=== PATIENT | female | born 1930 | race Caucasian/White ===

== ENCOUNTER 2020-04-17 11:30 | Emergency (ER) | payer MEDICARE, OTHER ==
[~2020-04-17] VITALS: Ht 152.4 cm; Wt 54.4 kg
[~2020-04-17 11:30] MED LIST: DOXY100T PO; Metoprolol Succinate PO; PANT40TA3 PO; PRED10TA PO; VERA100C5 PO; VORT5TAB PO; ZOLP5TAB PO
--- NOTE | 2020-04-17 11:32 | NUR ---
ARRIVAL PT ARRIVED TO ED WITH C/O DIFFICULTY BREATHING. PT HAS O2 ATTACHED UPON ARRIVAL. PT STATES SHE DOES NOT KNOW HOW MUCH OXYGEN SHE IS SUPPOSED TO BE ON. PTS GRANDSON STATES SHE HAS BEEN CONFUSED, HAVING MOOD HIGH AND LOWS FOR THE PAST FEW DAYS. BEDSIDE MONITORS APPLIED. BEDSIDE MONITORS APPLIED. VITAL SIGNS STABLE. BED IN LOW LOCKED POSITION WITH CALL LIGHT WITHIN REACH. GRANDSON AT BEDSIDE.
[2020-04-17 11:41] VITALS: BP 156/67
--- NOTE | 2020-04-17 11:48 | ER.PDOC ---
General Chief Complaint: General Complaint Stated Complaint: CONFUSION Time seen by MD: 11:46 Source: patient Exam Limitations: no limitations History of Present Illness Initial Comments Confusion for past few days. Character of AMS: confused Usually: orientedx3 Allergies: Coded Allergies: meperidine (Verified Allergy, Intermediate, 08/10/15) Home Meds Active Scripts Prednisone (PREDNISONE) 10 Mg Tablet, 10 MG PO DAILY24, #1 0 Refills Prov:ARTHUR,AMIR DO 11/17/19 Verapamil Hcl (VERELAN PM) 100 Mg Cap24h.pct, 200 MG PO DAILY, #30 CAPSULE Prov:ARTHUR,AMIR DO 11/17/19 Pantoprazole Sodium (PROTONIX) 40 Mg Tablet.dr, 40 MG PO DAILY, #15 TAB Prov:ARTHUR,AMIR DO 11/17/19 Zolpidem Tartrate (AMBIEN) 5 Mg Tablet, 10 MG PO HS, #30 TAB Prov:ARTHUR,AMIR DO 11/17/19 Vortioxetine Hydrobromide (Trintellix) 5 Mg Tablet, 20 MG PO DAILY24, #30 TAB Prov:ARTHUR,AMIR DO 11/17/19 [Metoprolol Succinate] 25 MG TAB.ER.24H No Conflict Check, 100 MG PO DAILY, #30 TAB Prov:ARTHUR,AMIR DO 11/17/19 Doxycycline Hyclate (DOXYCYCLINE HYCLATE) 100 Mg Tablet, 100 MG PO BID, #10 TAB Prov:ARTHUR,AMIR DO 11/17/19 Past Medical History Medical History: congestive heart failure, COPD, hypertension Surgical History: appendectomy, cholecystectomy, hysterectomy, knee Social History Drug Use: none Review of Systems Constitutional: no symptoms reported Respiratory: no symptoms reported Cardiovascular: no symptoms reported Gastrointestinal: no symptoms reported Musculoskeletal: no symptoms reported Psychiatric/Neurological: see HPI, anxiety All Other Systems: Reviewed and Negative Physical Exam General Appearance: alert, no distress HEENT: no apparent trauma Neuro/Psych: nml speech/cognition, nml mood/affect, disoriented to time Cranial Nerves: nml as tested Peripheral Exam: motor nml, sensation nml, reflexes nml Neck: supple, non-tender, no carotid bruit Respiratory: no resp distress, breath sounds nml CVS: reg rate & rhythm, heart sounds nml Abdomen: non-tender, no organomegaly, no distention Skin: color nml, no rash, warm/dry Extremities: non-tender, nml ROM, no pedal edema Results/Orders Results/Orders Orders - DREW CASTRO MD Cbc With Auto Diff (04/17/20 11:45) Comprehensive Metabolic Panel (04/17/20 11:45) Creatine Kinase (04/17/20 11:45) Creatine Kinase Mb (04/17/20 11:45) PT (04/17/20 11:45) Partial Thromboplastin Time. (04/17/20 11:45) Xr Chest 1v (04/17/20 11:45) Ct Head Wo Contrast (04/17/20 11:45) Urinalysis (04/17/20 11:45) Ekg-Routine (04/17/20 11:45) Troponin I (04/17/20 11:45) Arterial Blood Gas (04/17/20 11:45) Ct Chest W Iv Contrast (04/17/20 12:25) Ct Abd/Pel With Iv Contrast (04/17/20 13:24) Vital Signs Date Time Temp Pulse Resp B/P (MAP) Pulse Ox O2 Delivery O2 Flow Rate FiO2 04/17/20 14:18 98.8 104 18 165/97 (119) 95 Nasal [place] 1.00 04/17/20 12:34 98.8 82 18 168/79 (108) 94 Nasal Canula 1.00 04/17/20 11:41 98.8 104 22 04/17/20 11:41 98.8 104 22 156/67 (96) 94 Room Air 04/17/20 11:41 98.8 104 22 94 Laboratory Tests Test 04/17/20 11:52 04/17/20 12:07 04/17/20 12:42 Blood Gas Sample Site RT BRACIAL ARTERY Blood pH 7.483 (7.350-7.450) Blood Gas PCO2 34.4 mmHg (35.0-45.0) L Blood Gas PO2 59.3 mmHg (80.0-100.0) L Blood Gas HCO3 25.2 mmol/L (22.0-26.0) Blood Gas Base Excess 2.3 mmol/L (-2.0-2.0) H Dioni Test N/A Arterial Blood Oxygen Saturation 91.6 % (94.0-97.00) L Deoxyhemoglobin 8.3 % (0.0-5.0) H Carboxyhemoglobin 0.8 % (0.0-3.9) Methemoglobin 0.0 % (0.00-5.0) Total Hemoglobin 15.3 % (12.0-17.8) Total Oxygen Concentration 19.5 % (13.5-17.5) H Blood Gas Temperature 37 Oxygen Delivery Method ROOM AIR FiO2 21 % (20-101) Total Carbon Dioxide 26.3 mmol/L (23-27) White Blood Count 5.3 10^3/uL (4.5-11.0) Red Blood Count 5.04 10^6/uL (4.00-5.20) Hemoglobin 14.2 g/dL (12.0-15.0) Hematocrit 43.2 % (36.0-46.0) Mean Corpuscular Volume 85.7 fL (78-100) Mean Corpuscular Hemoglobin 28.2 pg (26-34) Mean Corpuscular Hemoglobin Concent 32.9 g/dL (33-36.5) L Red Cell Distribution Width 14.4 % (11.5-14.5) Platelet Count 191 10^3/uL (150-400) Mean Platelet Volume 10.7 fL (7.8-11.0) Neutrophils (%) (Auto) 81.3 % (41.0-85.0) Lymphocytes (%) (Auto) 11.9 % (24.0-44.0) L Monocytes (%) (Auto) 6.4 % (5.0-12.0) Neutrophils # (Auto) 4.3 10^3/uL (1.8-7.7) Lymphocytes # (Auto) 0.63 10^3/uL1 (1.0-4.8) L Monocytes # (Auto) 0.3 10^3/uL (0.3-0.8) Absolute Immature Granulocyte (auto 0.01 10^3 u/L (0-2) Absolute Eosinophils (auto) 0.0 10^3/uL (0.0-0.2) Immature Granulocytes % 0.20 % (0.00-0.50) Eosinophils % 0.0 % (0.0-5.0) Basophils % 0.2 % (0.0-0.2) Basophils # 0.0 10^3/uL (0.0-0.1) Prothrombin Time 11.0 SEC (9.3-11.3) Prothrombin Time INR (Non-Therap) 1.1 Activated Partial Thromboplast Time 26.4 SEC (24.67-30.72) Sodium Level 141 mmol/L (132-145) Potassium Level 3.8 mmol/L (3.6-5.2) Chloride Level 105.0 mmol/L (96-109) Carbon Dioxide Level 27.5 mmol/L (20.0-32) Anion Gap 12.3 Blood Urea Nitrogen 16 mg/dL (7-18) Creatinine 0.71 mg/dL (0.59-1.40) Estimated GFR () 94.2 (>/=60) Est GFR (CKD-EPI)(Non-Afr [place]) 77.9 (>/=60) BUN/Creatinine Ratio 22.0 Glucose Level 122 mg/dL (70-110) H Calcium Level 8.8 mg/dL (8.4-10.5) Total Bilirubin 1.2 mg/dL (0.2-1.0) H Aspartate Amino Transferase (AST) 21 U/L (0-35) Alanine Aminotransferase (ALT) 25 U/L (12-78) Alkaline Phosphatase 102 U/L (50-136) Total Creatine Kinase 48 U/L (26-192) Creatine Kinase MB 2.3 ng/mL (0.5-3.6) Troponin I < 0.02 ng/mL (0.00-0.05) Total Protein 6.2 g/dL (6.4-8.2) L Albumin 3.4 g/dL (3.4-5.0) Globulin 2.8 Urine Collection Type VOID Urine Color YELLOW (YELLOW) Urine Appearance CLEAR (CLEAR) Urine Bilirubin NEGATIVE MG/DL (NEGATIVE) Urine Ketones 15 mg/dL (NEGATIVE) H Urine Specific [place] 1.020 (1.005-1.035) Urine pH 7.5 (5.0-6.0) Urine Protein NEGATIVE (NEGATIVE) Urine Urobilinogen NORMAL (NEGATIVE) Urine Nitrate NEGATIVE (NEGATIVE) Urine Leukocyte Esterase 25 /uL TRACE (NEGATIVE) Urine Blood 10 TR (NEGATIVE) H Urine RBC 2-5 RBC/HPF (NONE SEEN) Urine WBC 0-2 WBC/HPF (0-2) Urine Squamous Epithelial Cells RARE #/HPF (FEW) Urine Bacteria NONE SEEN (NONE SEEN) Urine Glucose NORMAL (NEGATIVE) Progress Progress CT chest: Emphysema with chronic elevation of the right hemidiaphragm. No active cardiopulmonary disease process. The radiographic finding of concern likely represents a summation artifact CT abdomen/pelvis: Prior cholecystectomy and hysterectomy. Large cysts identified in each kidney. 2. Colonic diverticulosis without diverticulitis. 3. Increased amounts of fecal material in the colon suggestive of moderate constipation. Recommend clinical correlation. EKG/XRAY/CT/US EKG: NSR CT Comments: No acute intracranial abnormality Departure Time of Disposition: 14:27 Disposition: 01 HOME, SELF-CARE Impression: Primary Impression: Dementia Additional Impressions: COPD (chronic obstructive pulmonary disease) Constipation Condition: Stable Referrals: CARLOS RODRÍGUEZ MD (PCP) PRIMARY CARE PROVIDER Additional Instructions: Magnesium Citrate Continue home medications F/U with your PCP in 2-3 days Return to ED if worsening symptoms or concerns Duration or Time Spent with Pa: 60 min Problem Qualifiers Primary Impression: Dementia Dementia type: Alzheimer's disease Alzheimer's disease onset: unspecified onset Dementia behavioral disturbance: without behavioral disturbance Qualified Codes: G30.9 - Alzheimer's disease, unspecified; F02.80 - Dementia in other diseases classified elsewhere without behavioral disturbance Additional Impressions: COPD (chronic obstructive pulmonary disease) COPD type: unspecified COPD Qualified Codes: J44.9 - Chronic obstructive pulmonary disease, unspecified Constipation Constipation type: unspecified constipation type Qualified Codes: K59.00 - Constipation, unspecified DREW CASTRO MD Apr 17, 2020 11:48
--- NOTE | 2020-04-17 11:50 | PCM.EKG ---
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
[2020-04-17 11:57] LABS: ABG PCO2 34.4 mmHg (35.0-45.0); ABG PH 7.483 (7.350-7.450); BE(B) 2.3 mmol/L (-2.0-2.0); HCO3act 25.2 mmol/L (22.0-26.0); pO2 59.3 mmHg (80.0-100.0)
--- NOTE | 2020-04-17 12:13 | DIREP ---
PROCEDURE:CHEST 1 VIEW COMPARISON:[facility], CR, XRAY CHEST SINGLE VW, 02/24/2020, 07:27 AM. INDICATIONS:Shortness of breath FINDINGS: LUNGS/PLEURA:Chronic elevation of the right hemidiaphragm. Interval resolution of atelectasis previously seen in the right lung base. Emphysema. Focal rounded ground-glass opacity in the left hilum measuring 6 cm. No effusions. No pneumothorax. VASCULATURE:Unremarkable pulmonary vasculature. CARDIAC:No cardiac silhouette abnormality or cardiomegaly. MEDIASTINUM:No visible mass or adenopathy. BONES:Degenerative changes of the shoulders with loose body noted on the right. OTHER:Negative. CONCLUSION: 1. Focal rounded ground-glass opacity in the left hilum. Recommend CT chest. 2. Suspect underlying emphysema. Dictated by: Tere Ochoa MD on 04/17/2020 at 12:10 PM
--- NOTE | 2020-04-17 12:19 | DIREP ---
PROCEDURE:CT HEAD OR BRAIN W/O CONTRAST COMPARISON:[facility], CT, CT HEAD BRAIN W/O CONTRAST, 02/24/2020, 07:11 AM. INDICATIONS:Confusion TECHNIQUE:CT images were created without intravenous contrast. FINDINGS: VENTRICLES:No hydrocephalus or midline shift. CEREBRUM:Mild enlargement of the cerebral sulci and fissures. Multiple areas of decreased density in the deep white matter of each hemisphere. 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 CEREBELLUM:Negative. BRAINSTEM:Negative. BASAL CISTERNS:Negative. SKULL:Normal. No fractures. SINUSES:Normal. OTHER:No acute intracranial hemorrhage. There is calcification of the intracranial portions of both internal carotid and both vertebral arteries. CONCLUSION: 1. 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 Mild age-related cerebral volume loss, intracranial arterial calcification, and extensive leukoariosis. 2. No acute pathology on noncontrast CT of the head. No significant change from the prior exam. Dictated by: Shane Ovalle M.D. on 04/17/2020 at 12:15 PM
[2020-04-17 12:27] LABS: BASOPHIL % 0.2 % (0.0-0.2); LYMPHOCYTES # 0.63 10^3/uL1 (1.0-4.8); LYMPHOCYTES % 11.9 % (24.0-44.0); MEAN CORP HGB 28.2 pg (26-34); MONOCYTES # 0.3 10^3/uL (0.3-0.8); MONOCYTES % 6.4 % (5.0-12.0); NEUTROPHIL # 4.3 10^3/uL (1.8-7.7); NEUTROPHILS % 81.3 % (41.0-85.0); PLATELET COUNT 191 10^3/uL (150-400); RED CELL DISTRIBUTION WIDTH 14.4 % (11.5-14.5)
--- NOTE | 2020-04-17 12:28 | NUR ---
PT STATUS PT SLEEPING, WHILE SLEEPING PTS O2 SATURATION AT 89% ON ROOM AIR. PT PLACED ON 1LITER VIA N/C AND NOW O2 SATURATION AT 94%. PT RESTING PEACFULLY, DENIES ANY NEEDS OR WANTS.
[2020-04-17 12:34] VITALS: BP 168/79
[2020-04-17 12:57] LABS: ALANINE AMINOTRANSFERASE(ML) 25 U/L (12-78); ALKALINE PHOSPHATASE 102 U/L (50-136); ASPARTATE AMINO TRANSFERASE 21 U/L (0-35); CALCIUM 8.8 mg/dL (8.4-10.5); CARBON DIOXIDE 27.5 mmol/L (20.0-32); GLUCOSE 122 mg/dL (70-110)
--- NOTE | 2020-04-17 13:11 | NUR ---
CT PT TAKEN TO CT.
[2020-04-17 13:14] LABS: APPEARANCE,URINE CLEAR (CLEAR); BILIRUBIN,URINE NEGATIVE (NEGATIVE); UA COLOR YELLOW (YELLOW)
[2020-04-17 13:15] LABS: UROBILINOGEN,URINE NORMAL (NEGATIVE)
--- NOTE | 2020-04-17 13:52 | DIREP ---
PROCEDURE:CT CHEST WITH CONTRAST COMPARISON:[facility], CT, CT ABD/PELVIS W/ CONTRAST, 04/17/2020, 01:30 PM. [facility], CR, XRAY CHEST SINGLE VW, 04/17/2020, 11:58 AM. INDICATIONS:shortness of breath and 6cm opacity left hilium TECHNIQUE:Helical sections through the chest were performed from the lung apices through the diaphragms with IV contrast. Sagittal and coronal reconstructions are obtained from source images. FINDINGS: LUNGS:Centrilobular emphysema. No visible pulmonary disease. Elevation of the right hemidiaphragm PLEURA:Normal. No mass or effusion. CARDIAC:Normal. No enlargement, pericardial thickening, or significant calcification. MEDIASTINUM:Normal. No mass or adenopathy. ZANE:Normal. No mass or adenopathy. AORTA:Atheromatous calcifications. CHEST WALL:Normal. No mass or axillary adenopathy. LIMITED ABDOMEN:Cholecystectomy. Bilateral renal cysts. BONES:Normal. No bony lesion or fracture. OTHER:Negative. CONCLUSION: Emphysema with chronic elevation of the right hemidiaphragm. No active cardiopulmonary disease process. The radiographic finding of concern likely represents a summation artifact Dictated by: Meliton Panchal M.D. on 04/17/2020 at 01:45 PM
[2020-04-17 14:18] VITALS: BP 165/97
--- NOTE | 2020-04-17 14:20 | DIREP ---
PROCEDURE:CT ABDOMEN/PELVIS W/ CONTRAST COMPARISON:[facility], CR, XRAY CHEST SINGLE VW, 11/15/2019, 11:19 AM. [facility], CR, XRAY CHEST 2 VWS, 10/11/2016, 10:37 AM. [facility], CR, XRAY CHEST SINGLE VW, 04/17/2020, 11:58 AM. INDICATIONS:RECOMMENDED BY RAD TECHNIQUE:Axial images were created through the abdomen and pelvis with non-ionic intravenous contrast material. No oral contrast was administered. Sagittal and coronal reconstructions were performed from source images. FINDINGS: LUNG BASES:Chronically elevated right hemidiaphragm. Normal heart size. Calcification of the mitral valve annulus. LIVER:Normal. No significant liver lesions are identified. BILIARY:Cholecystectomy clips. PANCREAS:Normal. No lesion, fluid collection, ductal dilatation, or atrophy. SPLEEN:Normal. No enlargement or focal lesion. ADRENALS:Normal. No mass or enlargement. URINARY TRACT:No hydronephrosis. Multiple large cysts identified in each kidney. Largest cyst is in the lower portion of the left kidney, and measures 5.8 x 8 x 7.4 cm. AORTA/VASCULAR:Scattered arterial calcifications. No aneurysm. RETROPERITONEUM:Normal. No mass or adenopathy. BOWEL/MESENTERY:Evaluation due to lack of oral contrast administration. 6 cm hiatal hernia. Somewhat increased amounts of gas and fluid identified in small large bowel loops. No evidence of high-grade intestinal obstruction, free air, or free fluid. Multiple colonic diverticula without diverticulitis. Large amount of fecal material throughout the colon. ABDOMINAL WALL:Normal. No mass or hernia. PELVIC ORGANS:Hysterectomy. BONES:No acute pathology. OTHER:Negative. CONCLUSION: 1. Prior cholecystectomy and hysterectomy. Large cysts identified in each kidney. 2. Colonic diverticulosis without diverticulitis. 3. Increased amounts of fecal material in the colon suggestive of moderate constipation. Recommend clinical correlation. Dictated by: Shane Ovalle M.D. on 04/17/2020 at 02:12 PM
[2020-05-26] MEDS ORDERED: METO-237 PO (06:50)
[2020-05-26] MEDS ORDERED: ASPI-667 PO (06:50)
[2020-05-26] MEDS ORDERED: FURO20TA3 PO (06:50)
[2020-05-26] MEDS ORDERED: LORA-448 PO (06:50)
[2020-05-26] MEDS ORDERED: POTA15TA9 PO (06:50)
[2020-05-26] MEDS ORDERED: FLUT1BLS3 IH (06:50)
[2020-05-26] MEDS ORDERED: LORA-447 PO (06:50)
[2020-05-26] MEDS ORDERED: ALBU0.63 NEB (06:50)
[2020-05-26] MEDS ORDERED: TRAZ-163 PO (06:50)
== END 2020-04-17 14:40 | disposition home or self-care (01) ==
LOC: ER 11:30
DX: J44.9 Chronic obstructive pulmonary disease, unspecified (principal); K59.00 Constipation, unspecified; F03.90 Unspecified dementia, unspecified severity, without behavioral disturbance, psychotic disturbance, mood disturbance, and anxiety; I11.0 Hypertensive heart disease with heart failure; I50.9 Heart failure, unspecified; Z79.899 Other long term (current) drug therapy; Z88.5 Allergy status to narcotic agent; Z90.49 Acquired absence of other specified parts of digestive tract; Z90.710 Acquired absence of both cervix and uterus
CPT/HCPCS: 36415; 70450; 71045; 71260; 74177; 80053; 81000; 82550; 82553; 82803; 84484; 85025; 85610; 85730; 93005; 99285; Q9965

== ENCOUNTER 2020-07-14 13:13 | Inpatient (IN) | payer MEDICARE, OTHER ==
[2020-07-14] VITALS (7 sets, daily range): BP systolic 113–138; BP diastolic 53–86
[~2020-07-14] VITALS: Ht 162.6 cm; Wt 79.4 kg
[~2020-07-14 13:13] MED LIST changes: +ALBU0.63 NEB; +ASPI-667 PO; +FLUT1BLS3 IH; +FURO20TA3 PO; +LORA-447 PO; +LORA-448 PO; +METO-237 PO; +POTA15TA9 PO; +TRAZ-163 PO
[2020-07-14] MEDS ORDERED: NEXTERONE ONE (14:01)
[2020-07-14] MEDS ORDERED: NEXTERONE 360 MG/200 ML BAG 200 ML IV ONE ×2 (14:01→21:44)
--- NOTE | 2020-07-14 14:21 | PCM.EKG ---
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1930 Requested By: DANETTE GANNON Order Number: [id number] Reading MD: Measurements Intervals [place] Rate: 137 P: [place]: QRS: 60 QRSD: 104 T: 76 QT: 345 QTc: 521 Interpretive Statements Atrial fibrillation Low voltage, extremity leads Probable left ventricular hypertrophy Anterior Q waves, possibly due to LVH Nonspecific T abnormalities, lateral leads Prolonged QT interval Compared to ECG 05/29/2020 17:25:39 Low QRS voltage now present Left ventricular hypertrophy now present Q waves now present T-wave abnormality now present Prolonged QT interval now present Sinus rhythm no longer present Atrial premature complex(es) no longer present Myocardial infarct finding no longer present Please click the below link to view image of tracing.
--- NOTE | 2020-07-14 14:34 | ER.PDOC ---
General Chief Complaint: Dyspnea/Respdistress Stated Complaint: DYSPNEA Time seen by MD: 14:33 Source: patient Exam Limitations: no limitations History of Present Illness Timing/Duration: 24 hours Severity: moderate Activities at Onset: activity/exertion, rest Prior Episodes/Possible Cause: chronic episodes Modifying Factors: improves with activity, improves with albuterol inhaler Associated Symptoms: edema, weakness Allergies: Coded Allergies: meperidine (Verified Allergy, Intermediate, 08/10/15) Home Meds Active Scripts Verapamil Hcl (VERELAN PM) 100 Mg Cap24h.pct, 200 MG PO DAILY, #30 CAPSULE Prov:ARTHUR,AMIR DO 11/17/19 Vortioxetine Hydrobromide (Trintellix) 5 Mg Tablet, 20 MG PO DAILY24, #30 TAB Prov:ARTHUR,AMIR DO 11/17/19 Reported Medications Lorazepam (ATIVAN) 0.5 Mg Tablet, 0.5 MG PO AT NOON PRN, TAB 05/26/20 Albuterol Sulfate (ALBUTEROL SULFATE) 0.63 Mg/3 Ml Vial.neb, 1 VIAL NEB BID, #225 MILLILITER 05/26/20 Fluticasone/Umeclidin/Vilanter (Trelegy Ellipta 100-62.5-25) 100-62.5 Blst.w.dev, 1 PUFF IH AM 05/26/20 Trazodone Hcl (TRAZODONE HCL) 50 Mg Tablet, 50 MG PO HS, TAB 05/26/20 Potassium Citrate (Potassium Citrate ER) 15 Meq Tablet.er, 20 MEQ PO BID 05/26/20 Metoprolol Succinate (METOPROLOL SUCCINATE) 50 Mg Tab.er.24h, 50 MG PO DAILY24, TABLET 05/26/20 Lorazepam (ATIVAN) 1 Mg Tablet, 1 MG PO BID, TAB 05/26/20 Furosemide (FUROSEMIDE) 20 Mg Tablet, 20 MG PO EVERY OTHER DAY, TAB 05/26/20 Aspirin (ASPIRIN) 81 Mg Tab.chew, 2 TAB PO DAILY, #90 TAB 3 Refills 05/26/20 Past Medical History Medical History: arrhythmia, cardiac problems, congestive heart failure, COPD, hypertension, other Surgical History: appendectomy, cholecystectomy, hysterectomy, tonsillectomy Social History Alcohol Use: none Drug Use: none Reviewed Nursing Reviewed: Vital Signs, Abn. Noted Review of Systems Constitutional: weakness EENTM: no symptoms reported Respiratory: see HPI Gastrointestinal: no symptoms reported All Other Systems: Reviewed and Negative Physical Exam General Appearance: Mild Distress HEENT: PERRL/EOMI, Normal ENT Inspection, TMs Normal, Pharynx Normal Neck: Non-Tender, Full Range of Motion, Supple, Normal Inspection Respiratory: chest non-tender, lungs clear, normal breath sounds, no respiratory distress, no accessory muscle use Cardiovascular: Tachycardia Gastrointestinal: Normal Bowel Sounds, No Organomegaly, No Pulsatile Mass, Non Tender, Soft Extremities: Swelling Neurologic/Psychiatric: 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 NML as Tested, No Motor/Sensory Deficits, Alert, Normal Mood/Affect, Oriented x 3 Skin: Normal Color, Warm/Dry Lymphatic: No Adenopathy Results/Orders Results/Orders Orders - DANETTE GANNON MD Amiodarone Hcl (Nexterone) (07/14/20 14:01) Amiodarone In Dextrose,Iso-Osm (Nexteron (07/14/20 14:01) Cbc With Auto Diff (07/14/20 14:19) Comprehensive Metabolic Panel (07/14/20 14:19) Creatine Kinase (07/14/20 14:19) Creatine Kinase Mb (07/14/20 14:19) Probnp B-Type Cardroom Drawing Runner (07/14/20 14:19) Troponin I (07/14/20 14:19) D-Dimer (07/14/20 14:19) Xr Chest 1v (07/14/20 14:19) PT (07/14/20 14:19) Partial Thromboplastin Time. (07/14/20 14:19) Ekg-Routine (07/14/20 14:19) Iv Amiodarone Protocol (07/14/20 14:20) Amiodarone Hcl (Nexterone) (07/14/20 15:53) Amiodarone In Dextrose,Iso-Osm (Nexteron (07/14/20 15:53) Covid19 Antigen Neli Elvira (07/14/20 15:55) Lorazepam (Ativan) (07/14/20 16:00) Lorazepam (Ativan) (07/14/20 16:07) Vital Signs Date Time Temp Pulse Resp B/P (MAP) Pulse Ox O2 Delivery O2 Flow Rate FiO2 11/3/20 13:28 95.8 115 26 113/56 (75) 94 Room Air 07/14/20 13:15 95.8 118 26 94 07/14/20 13:15 95.8 115 26 05/26/20 11:09 93 Administered Medications Medications (Trade) Dose Ordered Sig/Jose Route PRN Reason Start Time Stop Time Status Last Admin Dose Admin Amiodarone HCl 150 mg/Dextrose 103 ml @ 600 mls/hr OT STAT IV 07/14/20 15:53 07/14/20 16:03 DC 07/14/20 15:00 600 MLS/HR Amiodarone HCL/ Dextrose 200 ml @ 34 mls/hr OT STAT IV 07/14/20 15:53 07/14/20 21:45 07/14/20 15:15 34 MLS/HR Lorazepam (Ativan) 0.5 mg STAT STAT PO 07/14/20 16:00 07/14/20 16:01 DC 07/14/20 16:12 0.5 MG Laboratory Tests Test 07/14/20 14:45 White Blood Count 5.2 10^3/uL (4.5-11.0) Red Blood Count 4.33 10^6/uL (4.00-5.20) Hemoglobin 12.3 g/dL (12.0-15.0) Hematocrit 41.8 % (36.0-46.0) Mean Corpuscular Volume 96.5 fL (78-100) Mean Corpuscular Hemoglobin 28.4 pg (26-34) Mean Corpuscular Hemoglobin Concent 29.4 g/dL (33-36.5) L Red Cell Distribution Width 17.5 % (11.5-14.5) H Platelet Count 126 10^3/uL (150-400) L Mean Platelet Volume 11.7 fL (7.8-11.0) H Neutrophils (%) (Auto) 77.2 % (41.0-85.0) Lymphocytes (%) (Auto) 14.1 % (24.0-44.0) L Monocytes (%) (Auto) 8.3 % (5.0-12.0) Neutrophils # (Auto) 4.0 10^3/uL (1.8-7.7) Lymphocytes # (Auto) 0.73 10^3/uL1 (1.0-4.8) L Monocytes # (Auto) 0.4 10^3/uL (0.3-0.8) Absolute Immature Granulocyte (auto 0.01 10^3 u/L (0-2) Absolute Eosinophils (auto) 0.0 10^3/uL (0.0-0.2) Immature Granulocytes % 0.20 % (0.00-0.50) Eosinophils % 0.0 % (0.0-5.0) Basophils % 0.2 % (0.0-0.2) Basophils # 0.0 10^3/uL (0.0-0.1) Prothrombin Time 11.3 SEC (9.3-11.3) Prothrombin Time INR (Non-Therap) 1.1 Activated Partial Thromboplast Time 26.3 SEC (24.67-30.72) D-Dimer 0.77 mg/L (0.19-0.49) *H Sodium Level 145 mmol/L (132-145) Potassium Level 4.3 mmol/L (3.6-5.2) Chloride Level 108.0 mmol/L (96-109) Carbon Dioxide Level 35.8 mmol/L (20.0-32) H Anion Gap 5.5 Blood Urea Nitrogen 23 mg/dL (7-18) H Creatinine 0.80 mg/dL (0.59-1.40) Estimated GFR () 82.1 (>/=60) Est GFR (CKD-EPI)(Non-Afr [place]an) 67.8 (>/=60) BUN/Creatinine Ratio 28.0 Glucose Level 132 mg/dL (70-110) H Calcium Level 8.8 mg/dL (8.4-10.5) Total Bilirubin 3.1 mg/dL (0.2-1.0) H Aspartate Amino Transferase (AST) 29 U/L (0-35) Alanine Aminotransferase (ALT) 22 U/L (12-78) Alkaline Phosphatase 99 U/L (50-136) Total Creatine Kinase 42 U/L (26-192) Creatine Kinase MB 3.6 ng/mL (0.5-3.6) Troponin I 0.13 ng/mL (0.00-0.05) H Pro-B-Type Natriuretic Peptide 9501 pg/mL (0-450) H Total Protein 5.6 g/dL (6.4-8.2) L Albumin 3.2 g/dL (3.4-5.0) L Globulin 2.4 Albumin/Globulin Ratio 1.333 EKG/XRAY/CT/US EKG Comments: afib , rvr Consult/PCP Time Consult/PCP Called: 16:00 Consult/PCP: DR MILES ER DEPART Departure Time of Disposition: 15:22 Disposition: 09 ADMITTED INPATIENT Impression: Primary Impression: Atrial fibrillation with RVR Additional Impression: Decompensated heart failure Condition: Improved Referrals: CARLOS RODRÍGUEZ MD (PCP) PRIMARY CARE PROVIDER Duration or Time Spent with Pa: 21M Problem Qualifiers DANETTE GANNON MD Jul 14, 2020 14:34
--- NOTE | 2020-07-14 14:35 | DIREP ---
PROCEDURE:CHEST 1 VIEW COMPARISON:[facility], CR, XRAY CHEST SINGLE VW, 05/29/2020, 05:30 PM. INDICATIONS:SHORTNESS OF BREATH FINDINGS: LUNGS/PLEURA:Elevation of the right hemidiaphragm, with small bilateral pleural effusions. No focal consolidation or pneumothorax noted. VASCULATURE:Normal. Unremarkable pulmonary vasculature. CARDIAC:Normal. No cardiac silhouette abnormality or cardiomegaly. MEDIASTINUM:Calcified aorta. BONES:Degenerative changes. OTHER:Negative. CONCLUSION:Small bilateral pleural effusions. Dictated by: Maya Jean M.D. on 07/14/2020 at 02:33 PM
[2020-07-14 14:56] LABS: BASOPHIL % 0.2 % (0.0-0.2); LYMPHOCYTES # 0.73 10^3/uL1 (1.0-4.8); LYMPHOCYTES % 14.1 % (24.0-44.0); MEAN CORP HGB 28.4 pg (26-34); MONOCYTES # 0.4 10^3/uL (0.3-0.8); MONOCYTES % 8.3 % (5.0-12.0); NEUTROPHILS % 77.2 % (41.0-85.0); PLATELET COUNT 126 10^3/uL (150-400); RED CELL DISTRIBUTION WIDTH 17.5 % (11.5-14.5)
[2020-07-14 15:21] LABS: CALCIUM 8.8 mg/dL (8.4-10.5); CARBON DIOXIDE 35.8 mmol/L (20.0-32)
[2020-07-14] MEDS ORDERED: NEXTERONE IV STA (15:53)
[2020-07-14] MEDS ORDERED: NEXTERONE 360 MG/200 ML BAG 200 ML IV STA (15:53)
[2020-07-14] MEDS ORDERED: D5W IV STA (15:53)
[2020-07-14] MEDS ORDERED: ATIVAN PO STA (16:00)
[2020-07-14] MEDS ORDERED: ATIVAN ONE (16:07)
--- NOTE | 2020-07-14 19:18 | NUR ---
ROSI ARANDA IN ER TO SEE PATIENT
[2020-07-14] MEDS ORDERED: MORPHINE SULFATE IV PRN (20:00)
[2020-07-14] MEDS ORDERED: VENTOLIN IH PRN (20:00)
[2020-07-14] MEDS ORDERED: TYLENOL PO PRN (20:00)
[2020-07-14] MEDS ORDERED: REMDESIVIR (EUA) 200 MG in NS 250ML 250 ML IV SCH (20:00)
[2020-07-14] MEDS ORDERED: ATROVENT IH PRN (20:00)
[2020-07-14] MEDS: LASIX IV SCH (21:00)
[2020-07-14] MEDS ORDERED: LOVENOX SQ SCH (21:00)
--- NOTE | 2020-07-14 21:30 | PCM.HP ---
HISTORY & PHYSICAL HISTORY & PHYSICAL DATE OF ADMISSION: CHIEF COMPLAINT: HISTORY OF PRESENT ILLNESS: ALLERGIES: CURRENT MEDICATIONS: PAST MEDICAL HISTORY: SOCIAL HISTORY: FAMILY HISTORY: REVIEW OF SYSTEMS: PHYSICAL EXAMINATION: GENERAL: VITAL SIGNS: HEENT: NECK: LUNGS: HEART: ABDOMEN: EXTREMITIES: NEUROLOGIC: LABORATORY DATA: IMPRESSION: CARE PLAN: HILDA ARANDA MD Jul 14, 2020 21:30
[2020-07-14] MEDS: COMBIVENT RESPIMAT 20-100 MCG IH PRN (22:10)
[2020-07-14] MEDS ORDERED: LANOLIN HYDROUS TP ONE (22:20)
[2020-07-14 23:13] LABS: ABG PCO2 43.4 mmHg (35.0-45.0); BE(B) 1.9 mmol/L (-2.0-2.0); HCO3act 26.9 mmol/L (22.0-26.0); pO2 90.3 mmHg (80.0-100.0)
--- NOTE | 2020-07-14 23:40 | NUR ---
ROSI/AMIODARONE THIS NURSE PHONED DR. ARANDA AND LEFT A MESSAGE REGARDING AMIODARONE DRIP. WAITING TO HERE BACK FROM DR. ARANDA.
--- NOTE | 2020-07-14 23:55 | NUR ---
CLARIFICATION OF AMIODARONE DR. MILES PHONED DR. ARANDA CONCERNING THE AMIODARONE. DR. MILES REPORTED DR. ARANDA WOULD LIKE AMIODARONE CONTINUED PER PROTOCOL AND ALSO CONTINUE THE GIVE THE METOPROLOL ORDERED.
[2020-07-15] MEDS ORDERED: NEXTERONE 360 MG/200 ML BAG 200 ML IV SCH
[2020-07-15] MEDS: ATIVAN PO SCH ×3 (00:03→21:25)
[2020-07-15] MEDS: PEPCID IV SCH ×3 (00:03→21:25)
[2020-07-15] MEDS: TRINTELLIX PO SCH ×2 (00:04→18:21)
[2020-07-15] MEDS: VITAMIN C PO SCH ×3 (00:04→21:25)
[2020-07-15] MEDS: TOPROL XL PO SCH ×2 (00:05→18:21)
[2020-07-15] MEDS: LOVENOX SQ SCH ×2 (00:07→08:34)
[2020-07-15 00:12] VITALS: BP 122/83
[2020-07-15 02:40] VITALS: BP 122/77
[2020-07-15 05:44] LABS: BASOPHIL % 0.2 % (0.0-0.2); LYMPHOCYTES # 0.86 10^3/uL1 (1.0-4.8); LYMPHOCYTES % 18.6 % (24.0-44.0); MEAN CORP HGB 28.9 pg (26-34); MONOCYTES # 0.5 10^3/uL (0.3-0.8); MONOCYTES % 10.2 % (5.0-12.0); NEUTROPHIL # 3.3 10^3/uL (1.8-7.7); NEUTROPHILS % 70.8 % (41.0-85.0); PLATELET COUNT 125 10^3/uL (150-400); RED CELL DISTRIBUTION WIDTH 17.6 % (11.5-14.5)
[2020-07-15 07:13] LABS: CALCIUM 8.6 mg/dL (8.4-10.5)
[2020-07-15] MEDS ORDERED: PEPCID IV ONE (08:16)
--- NOTE | 2020-07-15 08:25 | DIREP ---
PROCEDURE:US VENOUS IMAGING BILAT COMPARISON:None. INDICATIONS:R/O DVT, Knee Surg over 10 yr, Leg Swelling TECHNIQUE:The lower extremities were evaluated utilizing hamilton scale images with segmental compression, color Doppler, and spectral Doppler with respiratory variation and augmentation. FINDINGS: RIGHT Common femoral vein:Patent Superficial femoral vein:Patent Popliteal vein:Patent Posterior tibial vein:Patent Greater saphenous vein:Patent Waveforms: Within normal limits. LEFT Common femoral vein:Patent Superficial femoral vein:Patent Popliteal vein:Patent Posterior tibial vein:Patent Greater saphenous vein:Patent Waveforms: Within normal limits. CONCLUSION:No evidence of deep venous thrombosis Dictated by: Song Bose DO on 07/15/2020 at 08:21 AM
[2020-07-15] MEDS: ASPIRIN PO SCH (08:34)
[2020-07-15] MEDS: ZINC SULFATE PO SCH (08:34)
[2020-07-15] MEDS: DEXAMETHASONE 10 MG/ML VIAL IV SCH (08:35)
[2020-07-15] MEDS: LASIX IV SCH ×2 (08:35→21:25)
[2020-07-15 08:42] VITALS: BP 139/74
[2020-07-15] MEDS: COMBIVENT RESPIMAT 20-100 MCG IH PRN ×2 (09:00→15:46)
[2020-07-15 09:57] VITALS: BP 139/74
[2020-07-15 14:48] VITALS: BP 143/86
--- NOTE | 2020-07-15 15:00 | NUR ---
Amiodarone Amiodarone drip stop at this time per protocol. Heart rate 70 Sinus Rhythm, patient verbalize that she "feels so much better" no acute s/s of distress noted. Will continue to monitor.
[2020-07-15 20:00] VITALS: BP 147/73
--- NOTE | 2020-07-15 23:59 | PRM.PN ---
PROGRESS NOTE S/O/A/P SUBJECTIVE: This [] years of age patient [] who has presented [ ] OBJECTIVE: [] ASSESSMENT:[] PLAN[] HILDA ARANDA MD Jul 15, 2020 23:59
[2020-07-16] VITALS: BP 167/80
[2020-07-16 04:00] VITALS: BP 138/74
[2020-07-16 07:23] LABS: BASOPHIL % 0.4 % (0.0-0.2); LYMPHOCYTES # 0.64 10^3/uL1 (1.0-4.8); LYMPHOCYTES % 11.7 % (24.0-44.0); MEAN CORP HGB 29.4 pg (26-34); MONOCYTES # 0.5 10^3/uL (0.3-0.8); MONOCYTES % 9.7 % (5.0-12.0); NEUTROPHIL # 4.3 10^3/uL (1.8-7.7); PLATELET COUNT 121 10^3/uL (150-400); RED CELL DISTRIBUTION WIDTH 17.3 % (11.5-14.5)
[2020-07-16 08:07] LABS: CALCIUM 8.3 mg/dL (8.4-10.5); CARBON DIOXIDE 37.9 mmol/L (20.0-32)
[2020-07-16 09:09] VITALS: BP 149/73
[2020-07-16] MEDS: COMBIVENT RESPIMAT 20-100 MCG IH PRN ×2 (09:20→21:15)
[2020-07-16] MEDS: VITAMIN C PO SCH ×2 (10:16→22:33)
[2020-07-16] MEDS: ATIVAN PO SCH ×2 (10:16→22:33)
[2020-07-16] MEDS: ZINC SULFATE PO SCH (10:16)
[2020-07-16] MEDS: ASPIRIN PO SCH (10:16)
[2020-07-16] MEDS: LOVENOX SQ SCH (10:17)
[2020-07-16] MEDS: PEPCID IV SCH ×2 (10:17→22:33)
[2020-07-16] MEDS: LASIX IV SCH ×2 (10:17→22:33)
[2020-07-16] MEDS: DEXAMETHASONE 10 MG/ML VIAL IV SCH (10:17)
[2020-07-16] MEDS: REMDESIVIR (EUA) 100 MG in NS 250ML 250 ML IV SCH (10:18)
--- NOTE | 2020-07-16 15:05 | DIREP ---
PROCEDURE:NM LUNG SCAN PERFUSION/PINEDA COMPARISON:[facility], CR, XRAY CHEST SINGLE VW, 05/29/2020, 05:[address] [facility], CR, XRAY CHEST SINGLE VW, 07/14/2020, 01:57 PM. INDICATIONS:Hypoxia with Elevated D-dimer TECHNIQUE:After obtaining the patient's consent, a perfusion scan was obtained using 5.3 mCi Tc-99m MAA intravenous. FINDINGS: VENTILATION:Not performed due to Covid 19 precautions. PERFUSION:Normal, no significant defect. Right basilar defect is a combination of small volume pleural fluid and elevation of the right hemidiaphragm. Linear defect in the left lung represents fluid in the fissure. CONCLUSION:Low probability of pulmonary embolism. Dictated by: Jimbo Stearns MD. on 07/16/2020 at 03:01 PM
--- NOTE | 2020-07-16 15:34 | DIET.OP ---
Nutrition Asmt/Malnutrit 2-17 Actual Date of Review: Jul 16, 2020 Nutritional Screening: Malnutr/Diet Consult Diagnosis: COVID, hypoxia Pertinent Medical Hx/Surgical: HTN, COPD, CHF Subjective Information: PO intake for today not documented, attempted to call into patients room x 2 with no answer. She reported poor po intake and reduced appetite at last visit 05/26/20. Currently on comfort esteban oxygen. Current Diet Order/Nutrition S: Cardiac Patient /S.O: Not Indicated Pertinent Meds lasix Pertinent Labs K 3.4, CO2 37.9, BUN 28, glucose POC 179 Height (Feet): 5 Height (Inches): 4 Current Weight: 166 (stated by pt) Usual Weight: 165 %UBW: 100 %IBW: 138 Recent Weight Change: Yes (10# wt gain since last visit 2 months ago) Weight Status: Overweight GI Symptoms: None Food Allergies: No Cultural/Ethnic/Evangelical Rocio: none reported Usual Diet at Home: Regular Current %PO: 15-50% yesterday BEE in Kcals: Use Current Weight Calories/Kcals/Kg: MSJ 1.2-1.3 Kcals Calculated: 2209-2433 Protein: Use Current Weight Protein g/kg: .8-1 Protein Calculated: 60-75 Fluid: ml: 1 ml/kcal Nutritional Problem: Nutr. Problems Present Problems: Inadequate oral intake Etiology: poor appetite Signs/Symptoms: 15-50% po intake Recommendations by RD: Increase Calorie Intake, Add supplement feedings RD Comments: 1. Continue cardiac diet, encouraging po intake 2. If po intake is below 50% of most meals recommend Ensure Enlive oral supplement BID 3. Monitor BG and treat as indicated to prevent hyperglycemia. Expected Outcomes At least 75% po intake of most meals the next 5 days. Discharge on cardiac diet Malnutrtion/Nutrition Risk Edu: No MD Notificiation Needed?: No Jeannie Sierra Jul 16, 2020 15:34
[2020-07-16 16:31] VITALS: BP 150/73
[2020-07-16] MEDS: TOPROL XL PO SCH (18:03)
[2020-07-16] MEDS: TRINTELLIX PO SCH (18:05)
--- NOTE | 2020-07-16 20:05 | NUR ---
Shift summary: VSS on 20L comfort flow. PIV to LAC redressed. Redesivir given X1. Good appetite. Spoke with daughter Kenya for update. No c/o pain. [place] CDI, red/rust colored urine output. VQ scan complete. No other complaints.
[2020-07-16 20:15] VITALS: BP 113/82
--- NOTE | 2020-07-16 20:29 | PRM.PN ---
PROGRESS NOTE S/O/A/P SUBJECTIVE: This [] years of age patient [] who has presented [ ] OBJECTIVE: [] ASSESSMENT:[] PLAN[] HILDA ARANDA MD Jul 16, 2020 20:29
[2020-07-17 00:30] VITALS: BP 157/90
[2020-07-17] MEDS: COMBIVENT RESPIMAT 20-100 MCG IH PRN ×3 (05:06→21:55)
[2020-07-17 05:30] VITALS: BP 160/93
[2020-07-17 06:09] LABS: BASOPHIL % 0.3 % (0.0-0.2); LYMPHOCYTES # 0.56 10^3/uL1 (1.0-4.8); MEAN CORP HGB 29.6 pg (26-34); MONOCYTES # 0.6 10^3/uL (0.3-0.8); MONOCYTES % 7.8 % (5.0-12.0); NEUTROPHIL # 6.8 10^3/uL (1.8-7.7); NEUTROPHILS % 84.6 % (41.0-85.0); PLATELET COUNT 147 10^3/uL (150-400)
[2020-07-17 06:29] LABS: CALCIUM 8.7 mg/dL (8.4-10.5); CARBON DIOXIDE 40.2 mmol/L (20.0-32)
[2020-07-17 08:37] VITALS: BP 145/86
[2020-07-17] MEDS: PEPCID IV SCH ×2 (09:13→20:51)
[2020-07-17] MEDS: ATIVAN PO SCH ×2 (09:13→21:22)
[2020-07-17] MEDS: DEXAMETHASONE 10 MG/ML VIAL IV SCH (09:14)
[2020-07-17] MEDS: ZINC SULFATE PO SCH (09:14)
[2020-07-17] MEDS: LASIX IV SCH ×2 (09:14→20:46)
[2020-07-17] MEDS: ASPIRIN PO SCH (09:14)
[2020-07-17] MEDS: REMDESIVIR (EUA) 100 MG in NS 250ML 250 ML IV SCH (09:15)
[2020-07-17] MEDS: VITAMIN C PO SCH ×2 (09:22→21:22)
[2020-07-17] MEDS ORDERED: NS 500ML 500 ML IV ONE (10:33)
[2020-07-17 12:00] VITALS: BP 153/86
[2020-07-17 17:13] VITALS: BP 150/80
--- NOTE | 2020-07-17 18:13 | NUR ---
LOVENOX ORDER RECEIVED FROM DR QUEEN TO D/C MATT
[2020-07-17 18:55] VITALS: BP 153/72
[2020-07-17] MEDS: TRINTELLIX PO SCH (19:40)
[2020-07-17] MEDS: TOPROL XL PO SCH (19:40)
[2020-07-17] MEDS ORDERED: PEPCID ONE (20:00)
[2020-07-17] MEDS ORDERED: LASIX ONE (20:00)
[2020-07-17] MEDS ORDERED: ULTRAM ONE (20:01)
--- NOTE | 2020-07-17 20:36 | PRM.PN ---
PROGRESS NOTE SUBJECTIVE Patient is an 89yo lady addmitted with hx of Covid 19 pneumonia. Having recurrent hypoxia. Currently on comfort flow. OBJECTIVE First Vital Signs Date Time Temp Pulse Resp B/P (MAP) Pulse Ox O2 Delivery O2 Flow Rate FiO2 07/14/20 13:15 95.8 115 26 07/14/20 13:15 94 07/14/20 13:28 113/56 (75) Room Air 07/14/20 22:04 20.00 60 Last Vital Signs Date Time Temp Pulse Resp B/P (MAP) Pulse Ox O2 Delivery O2 Flow Rate FiO2 07/17/20 18:50 75 98 Comfort Flow 07/17/20 17:13 97.1 17 150/80 (103) 07/17/20 09:20 20.00 60 Laboratory Tests Test 07/14/20 14:45 07/14/20 15:55 07/14/20 23:00 07/15/20 04:43 White Blood Count 5.2 10^3/uL (4.5-11.0) 4.6 10^3/uL (4.5-11.0) Red Blood Count 4.33 10^6/uL (4.00-5.20) 4.05 10^6/uL (4.00-5.20) Hemoglobin 12.3 g/dL (12.0-15.0) 11.7 g/dL (12.0-15.0) Hematocrit 41.8 % (36.0-46.0) 38.9 % (36.0-46.0) Mean Corpuscular Volume 96.5 fL (78-100) 96.0 fL (78-100) Mean Corpuscular Hemoglobin 28.4 pg (26-34) 28.9 pg (26-34) Mean Corpuscular Hemoglobin Concent 29.4 g/dL (33-36.5) 30.1 g/dL (33-36.5) Red Cell Distribution Width 17.5 % (11.5-14.5) 17.6 % (11.5-14.5) Platelet Count 126 10^3/uL (150-400) 125 10^3/uL (150-400) Mean Platelet Volume 11.7 fL (7.8-11.0) 11.9 fL (7.8-11.0) Neutrophils (%) (Auto) 77.2 % (41.0-85.0) 70.8 % (41.0-85.0) Lymphocytes (%) (Auto) 14.1 % (24.0-44.0) 18.6 % (24.0-44.0) Monocytes (%) (Auto) 8.3 % (5.0-12.0) 10.2 % (5.0-12.0) Neutrophils # (Auto) 4.0 10^3/uL (1.8-7.7) 3.3 10^3/uL (1.8-7.7) Lymphocytes # (Auto) 0.73 10^3/uL1 (1.0-4.8) 0.86 10^3/uL1 (1.0-4.8) Monocytes # (Auto) 0.4 10^3/uL (0.3-0.8) 0.5 10^3/uL (0.3-0.8) Absolute Immature Granulocyte (auto 0.01 10^3 u/L (0-2) 0.01 10^3 u/L (0-2) Absolute Eosinophils (auto) 0.0 10^3/uL (0.0-0.2) 0.0 10^3/uL (0.0-0.2) Immature Granulocytes % 0.20 % (0.00-0.50) 0.20 % (0.00-0.50) Eosinophils % 0.0 % (0.0-5.0) 0.0 % (0.0-5.0) Basophils % 0.2 % (0.0-0.2) 0.2 % (0.0-0.2) Basophils # 0.0 10^3/uL (0.0-0.1) 0.0 10^3/uL (0.0-0.1) Prothrombin Time 11.3 SEC (9.3-11.3) Prothrombin Time INR (Non-Therap) 1.1 Activated Partial Thromboplast Time 26.3 SEC (24.67-30.72) D-Dimer 0.77 mg/L (0.19-0.49) Sodium Level 145 mmol/L (132-145) 145 mmol/L (132-145) Potassium Level 4.3 mmol/L (3.6-5.2) 3.9 mmol/L (3.6-5.2) Chloride Level 108.0 mmol/L (96-109) 107.0 mmol/L (96-109) Carbon Dioxide Level 35.8 mmol/L (20.0-32) 36.0 mmol/L (20.0-32) Anion Gap 5.5 5.9 Blood Urea Nitrogen 23 mg/dL (7-18) 25 mg/dL (7-18) Creatinine 0.80 mg/dL (0.59-1.40) 0.91 mg/dL (0.59-1.40) Estimated GFR () 82.1 (>/=60) 70.8 (>/=60) Est GFR (CKD-EPI)(Non-Afr Citizen Of [place]) 67.8 (>/=60) 58.5 (>/=60) BUN/Creatinine Ratio 28.0 27.0 Glucose Level 132 mg/dL (70-110) 113 mg/dL (70-110) Calcium Level 8.8 mg/dL (8.4-10.5) 8.6 mg/dL (8.4-10.5) Total Bilirubin 3.1 mg/dL (0.2-1.0) 1.8 mg/dL (0.2-1.0) Aspartate Amino Transf (AST/SGOT) 29 U/L (0-35) 25 U/L (0-35) Alanine Aminotransferase (ALT/SGPT) 22 U/L (12-78) 21 U/L (12-78) Alkaline Phosphatase 99 U/L (50-136) 86 U/L (50-136) Total Creatine Kinase 42 U/L (26-192) Creatine Kinase MB 3.6 ng/mL (0.5-3.6) Troponin I 0.13 ng/mL (0.00-0.05) 0.19 ng/mL (0.00-0.05) Pro-B-Type Natriuretic Peptide 9501 pg/mL (0-450) Total Protein 5.6 g/dL (6.4-8.2) 5.2 g/dL (6.4-8.2) Albumin 3.2 g/dL (3.4-5.0) 2.9 g/dL (3.4-5.0) Globulin 2.4 2.3 Albumin/Globulin Ratio 1.333 1.260 SARS-CoV-2 Antigen (Rapid) POSITIVE (NEGATIVE) Blood Gas Sample Site RT BRACIAL ARTERY Blood Gas pH 7.410 (7.350-7.450) Blood Gas PCO2 43.4 mmHg (35.0-45.0) Blood Gas PO2 90.3 mmHg (80.0-100.0) Blood Gas HCO3 26.9 mmol/L (22.0-26.0) Blood Gas Base Excess 1.9 mmol/L (-2.0-2.0) Dioni Test N/A Arterial Blood Oxygen Saturation 96.8 % (94.0-97.00) Deoxyhemoglobin 3.1 % (0.0-5.0) Carboxyhemoglobin 2.2 % (0.0-3.9) Methemoglobin 0.4 % (0.00-5.0) Total Hemoglobin 13.1 % (12.0-17.8) Total Oxygen Concentration 17.5 % (13.5-17.5) Blood Gas Temperature 37 Oxygen Delivery Method (LAB) CF FiO2 60 % (20-101) Total Carbon Dioxide 28.2 mmol/L (23-27) Hemoglobin A1c 5.6 % (0-5.7) Phosphorus Level 4.8 mg/dL (2.5-4.9) Magnesium Level 1.9 mg/dL (1.8-2.4) Ferritin 261 ng/mL (8-252) Lactate Dehydrogenase 466 U/L (81-234) C-Reactive Protein 1.48 mg/dL (0.00-5.00) Triglycerides Level 64 mg/dL (20-200) Cholesterol Level 117 mg/dL (120-240) LDL Cholesterol, Calculated 65.2 VLDL Cholesterol, Calculated 12.8 HDL Cholesterol 39 mg/dL (32-96) Cholesterol Ratio (LDL/HDL) 1.6 Cholesterol/HDL Ratio [id number] 25-Hydroxy Vitamin D Total 36.2 ng/mL (30.0-100.0) Test 07/15/20 20:33 07/16/20 06:33 07/17/20 04:47 Bedside Glucose 179 (70 - 110) White Blood Count 5.5 10^3/uL (4.5-11.0) 8.0 10^3/uL (4.5-11.0) Red Blood Count 3.94 10^6/uL (4.00-5.20) 4.15 10^6/uL (4.00-5.20) Hemoglobin 11.6 g/dL (12.0-15.0) 12.3 g/dL (12.0-15.0) Hematocrit 37.4 % (36.0-46.0) 39.3 % (36.0-46.0) Mean Corpuscular Volume 94.9 fL (78-100) 94.7 fL (78-100) Mean Corpuscular Hemoglobin 29.4 pg (26-34) 29.6 pg (26-34) Mean Corpuscular Hemoglobin Concent 31.0 g/dL (33-36.5) 31.3 g/dL (33-36.5) Red Cell Distribution Width 17.3 % (11.5-14.5) 17.0 % (11.5-14.5) Platelet Count 121 10^3/uL (150-400) 147 10^3/uL (150-400) Mean Platelet Volume 11.5 fL (7.8-11.0) 12.1 fL (7.8-11.0) Neutrophils (%) (Auto) 78.0 % (41.0-85.0) 84.6 % (41.0-85.0) Lymphocytes (%) (Auto) 11.7 % (24.0-44.0) 7.0 % (24.0-44.0) Monocytes (%) (Auto) 9.7 % (5.0-12.0) 7.8 % (5.0-12.0) Neutrophils # (Auto) 4.3 10^3/uL (1.8-7.7) 6.8 10^3/uL (1.8-7.7) Lymphocytes # (Auto) 0.64 10^3/uL1 (1.0-4.8) 0.56 10^3/uL1 (1.0-4.8) Monocytes # (Auto) 0.5 10^3/uL (0.3-0.8) 0.6 10^3/uL (0.3-0.8) Absolute Immature Granulocyte (auto 0.01 10^3 u/L (0-2) 0.02 10^3 u/L (0-2) Absolute Eosinophils (auto) 0.0 10^3/uL (0.0-0.2) 0.0 10^3/uL (0.0-0.2) Immature Granulocytes % 0.20 % (0.00-0.50) 0.30 % (0.00-0.50) Eosinophils % 0.0 % (0.0-5.0) 0.0 % (0.0-5.0) Basophils % 0.4 % (0.0-0.2) 0.3 % (0.0-0.2) Basophils # 0.0 10^3/uL (0.0-0.1) 0.0 10^3/uL (0.0-0.1) Sodium Level 143 mmol/L (132-145) 142 mmol/L (132-145) Potassium Level 3.4 mmol/L (3.6-5.2) 3.5 mmol/L (3.6-5.2) Chloride Level 103.0 mmol/L (96-109) 101.0 mmol/L (96-109) Carbon Dioxide Level 37.9 mmol/L (20.0-32) 40.2 mmol/L (20.0-32) Anion Gap 5.5 4.3 Blood Urea Nitrogen 28 mg/dL (7-18) 29 mg/dL (7-18) Creatinine 0.83 mg/dL (0.59-1.40) 0.80 mg/dL (0.59-1.40) Estimated GFR () 78.7 (>/=60) 82.1 (>/=60) Est GFR (CKD-EPI)(Non-Afr Citizen Of [place]) 65.0 (>/=60) 67.8 (>/=60) BUN/Creatinine Ratio 33.0 36.0 Glucose Level 109 mg/dL (70-110) 117 mg/dL (70-110) Calcium Level 8.3 mg/dL (8.4-10.5) 8.7 mg/dL (8.4-10.5) Phosphorus Level 4.5 mg/dL (2.5-4.9) Magnesium Level 1.9 mg/dL (1.8-2.4) Total Bilirubin 1.8 mg/dL (0.2-1.0) 1.4 mg/dL (0.2-1.0) Aspartate Amino Transf (AST/SGOT) 22 U/L (0-35) 19 U/L (0-35) Alanine Aminotransferase (ALT/SGPT) 20 U/L (12-78) 19 U/L (12-78) Alkaline Phosphatase 80 U/L (50-136) 106 U/L (50-136) Pro-B-Type Natriuretic Peptide 4387 pg/mL (0-450) Total Protein 5.2 g/dL (6.4-8.2) 5.6 g/dL (6.4-8.2) Albumin 2.8 g/dL (3.4-5.0) 3.0 g/dL (3.4-5.0) Globulin 2.4 2.6 Albumin/Globulin Ratio 1.166 1.153 Thyroid Stimulating Hormone (TSH) 0.640 mIU/mL (0.358-3.740) PHYSICAL EXAMINATION GENERAL: Stable, on comfort flow HEENT: PERRLA NECK; supple CHEST: Diminished air entry bilaterrally HEART: RRR ABDOMEN: soft, non-tender, BS++ EXTREMITIES: no edema 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 no focal motor deficit ASSESSMENT AND PLANS Acute Hypoxic respiratory failure; Continue on comfort flow. Continue to wean off oxygen COVID 19 pneumonia; Continue empiric treatment with remdesivir, zinc and vit C and breathing treatment AFIB + RVR; stable on metoprolol and amiodarone CHF exacerbation; continue lasix 40mg bid Hypokalemia; start oral KCL replacement therapy Further care per clinical course. Code Status; DNR MILLI MACKAY MD Jul 17, 2020 20:36
[2020-07-17] MEDS: MUCINEX PO SCH (21:22)
[2020-07-18 00:58] VITALS: BP 152/75
[2020-07-18] MEDS: COMBIVENT RESPIMAT 20-100 MCG IH PRN ×2 (02:55→10:00)
[2020-07-18 06:39] VITALS: BP 148/71
[2020-07-18] MEDS ORDERED: LOVENOX SQ SCH (07:30)
[2020-07-18] MEDS ORDERED: KLOR-CON 10 PO ONE (07:39)
[2020-07-18] MEDS ORDERED: KLOR-CON 10 PO SCH (09:00)
[2020-07-18 09:17] VITALS: BP 161/86
[2020-07-18 09:21] LABS: BASOPHIL % 0.2 % (0.0-0.2); LYMPHOCYTES # 0.65 10^3/uL1 (1.0-4.8); MEAN CORP HGB 28.9 pg (26-34); MONOCYTES # 0.6 10^3/uL (0.3-0.8); MONOCYTES % 8.8 % (5.0-12.0); NEUTROPHIL # 5.2 10^3/uL (1.8-7.7); NEUTROPHILS % 80.5 % (41.0-85.0); PLATELET COUNT 121 10^3/uL (150-400)
[2020-07-18] MEDS: MUCINEX PO SCH ×2 (09:23→20:33)
[2020-07-18] MEDS: REMDESIVIR (EUA) 100 MG in NS 250ML 250 ML IV SCH (09:23)
[2020-07-18] MEDS: ZINC SULFATE PO SCH (09:24)
[2020-07-18] MEDS: ASPIRIN PO SCH (09:24)
[2020-07-18] MEDS: VITAMIN C PO SCH ×2 (09:24→20:33)
[2020-07-18] MEDS: DEXAMETHASONE 10 MG/ML VIAL IV SCH (09:24)
[2020-07-18] MEDS: ATIVAN PO SCH ×2 (09:24→20:33)
[2020-07-18] MEDS: PEPCID IV SCH ×2 (09:25→20:33)
[2020-07-18] MEDS: LASIX IV SCH ×2 (09:25→20:33)
[2020-07-18 09:32] LABS: CALCIUM 8.5 mg/dL (8.4-10.5); CARBON DIOXIDE 41.2 mmol/L (20.0-32)
[2020-07-18 12:28] VITALS: BP 151/86
[2020-07-18 16:15] VITALS: BP 152/86
--- NOTE | 2020-07-18 17:16 | NUR ---
OXYGEN UPDATE RT EVALUATED PT, REMOVED COMFORT RYDER AND PT IS MAINTAINING O2 SAT ABOVE 90% ON 4L NC. WILL CONTINUE TO MONITOR
[2020-07-18 19:28] VITALS: BP 174/84
[2020-07-18] MEDS: TOPROL XL PO SCH (19:57)
[2020-07-18] MEDS: TRINTELLIX PO SCH (19:58)
--- NOTE | 2020-07-18 21:00 | PRM.PN ---
PROGRESS NOTE SUBJECTIVE Patient is seen and examined. feeling better. no new complain. OBJECTIVE First Vital Signs Date Time Temp Pulse Resp B/P (MAP) Pulse Ox O2 Delivery O2 Flow Rate FiO2 07/14/20 13:15 95.8 115 26 07/14/20 13:15 94 07/14/20 13:28 113/56 (75) Room Air 07/14/20 22:04 20.00 60 Last Vital Signs Date Time Temp Pulse Resp B/P (MAP) Pulse Ox O2 Delivery O2 Flow Rate FiO2 07/18/20 20:33 174/84 07/18/20 19:57 82 07/18/20 19:43 Nasal Cannula 07/18/20 19:38 5.00 07/18/20 19:28 97.5 20 95 07/18/20 16:28 40 Laboratory Tests Test 07/14/20 14:45 07/14/20 15:55 07/14/20 23:00 07/15/20 04:43 White Blood Count 5.2 10^3/uL (4.5-11.0) 4.6 10^3/uL (4.5-11.0) Red Blood Count 4.33 10^6/uL (4.00-5.20) 4.05 10^6/uL (4.00-5.20) Hemoglobin 12.3 g/dL (12.0-15.0) 11.7 g/dL (12.0-15.0) Hematocrit 41.8 % (36.0-46.0) 38.9 % (36.0-46.0) Mean Corpuscular Volume 96.5 fL (78-100) 96.0 fL (78-100) Mean Corpuscular Hemoglobin 28.4 pg (26-34) 28.9 pg (26-34) Mean Corpuscular Hemoglobin Concent 29.4 g/dL (33-36.5) 30.1 g/dL (33-36.5) Red Cell Distribution Width 17.5 % (11.5-14.5) 17.6 % (11.5-14.5) Platelet Count 126 10^3/uL (150-400) 125 10^3/uL (150-400) Mean Platelet Volume 11.7 fL (7.8-11.0) 11.9 fL (7.8-11.0) Neutrophils (%) (Auto) 77.2 % (41.0-85.0) 70.8 % (41.0-85.0) Lymphocytes (%) (Auto) 14.1 % (24.0-44.0) 18.6 % (24.0-44.0) Monocytes (%) (Auto) 8.3 % (5.0-12.0) 10.2 % (5.0-12.0) Neutrophils # (Auto) 4.0 10^3/uL (1.8-7.7) 3.3 10^3/uL (1.8-7.7) Lymphocytes # (Auto) 0.73 10^3/uL1 (1.0-4.8) 0.86 10^3/uL1 (1.0-4.8) Monocytes # (Auto) 0.4 10^3/uL (0.3-0.8) 0.5 10^3/uL (0.3-0.8) Absolute Immature Granulocyte (auto 0.01 10^3 u/L (0-2) 0.01 10^3 u/L (0-2) Absolute Eosinophils (auto) 0.0 10^3/uL (0.0-0.2) 0.0 10^3/uL (0.0-0.2) Immature Granulocytes % 0.20 % (0.00-0.50) 0.20 % (0.00-0.50) Eosinophils % 0.0 % (0.0-5.0) 0.0 % (0.0-5.0) Basophils % 0.2 % (0.0-0.2) 0.2 % (0.0-0.2) Basophils # 0.0 10^3/uL (0.0-0.1) 0.0 10^3/uL (0.0-0.1) Prothrombin Time 11.3 SEC (9.3-11.3) Prothrombin Time INR (Non-Therap) 1.1 Activated Partial Thromboplast Time 26.3 SEC (24.67-30.72) D-Dimer 0.77 mg/L (0.19-0.49) Sodium Level 145 mmol/L (132-145) 145 mmol/L (132-145) Potassium Level 4.3 mmol/L (3.6-5.2) 3.9 mmol/L (3.6-5.2) Chloride Level 108.0 mmol/L (96-109) 107.0 mmol/L (96-109) Carbon Dioxide Level 35.8 mmol/L (20.0-32) 36.0 mmol/L (20.0-32) Anion Gap 5.5 5.9 Blood Urea Nitrogen 23 mg/dL (7-18) 25 mg/dL (7-18) Creatinine 0.80 mg/dL (0.59-1.40) 0.91 mg/dL (0.59-1.40) Estimated GFR () 82.1 (>/=60) 70.8 (>/=60) Est GFR (CKD-EPI)(Non-Afr [place]ian) 67.8 (>/=60) 58.5 (>/=60) BUN/Creatinine Ratio 28.0 27.0 Glucose Level 132 mg/dL (70-110) 113 mg/dL (70-110) Calcium Level 8.8 mg/dL (8.4-10.5) 8.6 mg/dL (8.4-10.5) Total Bilirubin 3.1 mg/dL (0.2-1.0) 1.8 mg/dL (0.2-1.0) Aspartate Amino Transf (AST/SGOT) 29 U/L (0-35) 25 U/L (0-35) Alanine Aminotransferase (ALT/SGPT) 22 U/L (12-78) 21 U/L (12-78) Alkaline Phosphatase 99 U/L (50-136) 86 U/L (50-136) Total Creatine Kinase 42 U/L (26-192) Creatine Kinase MB 3.6 ng/mL (0.5-3.6) Troponin I 0.13 ng/mL (0.00-0.05) 0.19 ng/mL (0.00-0.05) Pro-B-Type Natriuretic Peptide 9501 pg/mL (0-450) Total Protein 5.6 g/dL (6.4-8.2) 5.2 g/dL (6.4-8.2) Albumin 3.2 g/dL (3.4-5.0) 2.9 g/dL (3.4-5.0) Globulin 2.4 2.3 Albumin/Globulin Ratio 1.333 1.260 SARS-CoV-2 Antigen (Rapid) POSITIVE (NEGATIVE) Blood Gas Sample Site RT BRACIAL ARTERY Blood Gas pH 7.410 (7.350-7.450) Blood Gas PCO2 43.4 mmHg (35.0-45.0) Blood Gas PO2 90.3 mmHg (80.0-100.0) Blood Gas HCO3 26.9 mmol/L (22.0-26.0) Blood Gas Base Excess 1.9 mmol/L (-2.0-2.0) Dioni Test N/A Arterial Blood Oxygen Saturation 96.8 % (94.0-97.00) Deoxyhemoglobin 3.1 % (0.0-5.0) Carboxyhemoglobin 2.2 % (0.0-3.9) Methemoglobin 0.4 % (0.00-5.0) Total Hemoglobin 13.1 % (12.0-17.8) Total Oxygen Concentration 17.5 % (13.5-17.5) Blood Gas Temperature 37 Oxygen Delivery Method (LAB) CF FiO2 60 % (20-101) Total Carbon Dioxide 28.2 mmol/L (23-27) Hemoglobin A1c 5.6 % (0-5.7) Phosphorus Level 4.8 mg/dL (2.5-4.9) Magnesium Level 1.9 mg/dL (1.8-2.4) Ferritin 261 ng/mL (8-252) Lactate Dehydrogenase 466 U/L (81-234) C-Reactive Protein 1.48 mg/dL (0.00-5.00) Triglycerides Level 64 mg/dL (20-200) Cholesterol Level 117 mg/dL (120-240) LDL Cholesterol, Calculated 65.2 VLDL Cholesterol, Calculated 12.8 HDL Cholesterol 39 mg/dL (32-96) Cholesterol Ratio (LDL/HDL) 1.6 Cholesterol/HDL Ratio 3.055766 25-Hydroxy Vitamin D Total 36.2 ng/mL (30.0-100.0) Test 07/15/20 20:33 07/16/20 06:33 07/17/20 04:47 07/18/20 09:10 Bedside Glucose 179 (70 - 110) White Blood Count 5.5 10^3/uL (4.5-11.0) 8.0 10^3/uL (4.5-11.0) 6.5 10^3/uL (4.5-11.0) Red Blood Count 3.94 10^6/uL (4.00-5.20) 4.15 10^6/uL (4.00-5.20) 4.33 10^6/uL (4.00-5.20) Hemoglobin 11.6 g/dL (12.0-15.0) 12.3 g/dL (12.0-15.0) 12.5 g/dL (12.0-15.0) Hematocrit 37.4 % (36.0-46.0) 39.3 % (36.0-46.0) 40.1 % (36.0-46.0) Mean Corpuscular Volume 94.9 fL (78-100) 94.7 fL (78-100) 92.6 fL (78-100) Mean Corpuscular Hemoglobin 29.4 pg (26-34) 29.6 pg (26-34) 28.9 pg (26-34) Mean Corpuscular Hemoglobin Concent 31.0 g/dL (33-36.5) 31.3 g/dL (33-36.5) 31.2 g/dL (33-36.5) Red Cell Distribution Width 17.3 % (11.5-14.5) 17.0 % (11.5-14.5) 17.0 % (11.5-14.5) Platelet Count 121 10^3/uL (150-400) 147 10^3/uL (150-400) 121 10^3/uL (150-400) Mean Platelet Volume 11.5 fL (7.8-11.0) 12.1 fL (7.8-11.0) 11.2 fL (7.8-11.0) Neutrophils (%) (Auto) 78.0 % (41.0-85.0) 84.6 % (41.0-85.0) 80.5 % (41.0-85.0) Lymphocytes (%) (Auto) 11.7 % (24.0-44.0) 7.0 % (24.0-44.0) 10.0 % (24.0-44.0) Monocytes (%) (Auto) 9.7 % (5.0-12.0) 7.8 % (5.0-12.0) 8.8 % (5.0-12.0) Neutrophils # (Auto) 4.3 10^3/uL (1.8-7.7) 6.8 10^3/uL (1.8-7.7) 5.2 10^3/uL (1.8-7.7) Lymphocytes # (Auto) 0.64 10^3/uL1 (1.0-4.8) 0.56 10^3/uL1 (1.0-4.8) 0.65 10^3/uL1 (1.0-4.8) Monocytes # (Auto) 0.5 10^3/uL (0.3-0.8) 0.6 10^3/uL (0.3-0.8) 0.6 10^3/uL (0.3-0.8) Absolute Immature Granulocyte (auto 0.01 10^3 u/L (0-2) 0.02 10^3 u/L (0-2) 0.03 10^3 u/L (0-2) Absolute Eosinophils (auto) 0.0 10^3/uL (0.0-0.2) 0.0 10^3/uL (0.0-0.2) 0.0 10^3/uL (0.0-0.2) Immature Granulocytes % 0.20 % (0.00-0.50) 0.30 % (0.00-0.50) 0.50 % (0.00-0.50) Eosinophils % 0.0 % (0.0-5.0) 0.0 % (0.0-5.0) 0.0 % (0.0-5.0) Basophils % 0.4 % (0.0-0.2) 0.3 % (0.0-0.2) 0.2 % (0.0-0.2) Basophils # 0.0 10^3/uL (0.0-0.1) 0.0 10^3/uL (0.0-0.1) 0.0 10^3/uL (0.0-0.1) Sodium Level 143 mmol/L (132-145) 142 mmol/L (132-145) 139 mmol/L (132-145) Potassium Level 3.4 mmol/L (3.6-5.2) 3.5 mmol/L (3.6-5.2) 3.4 mmol/L (3.6-5.2) Chloride Level 103.0 mmol/L (96-109) 101.0 mmol/L (96-109) 101.0 mmol/L (96-109) Carbon Dioxide Level 37.9 mmol/L (20.0-32) 40.2 mmol/L (20.0-32) 41.2 mmol/L (20.0-32) Anion Gap 5.5 4.3 0.2 Blood Urea Nitrogen 28 mg/dL (7-18) 29 mg/dL (7-18) 22 mg/dL (7-18) Creatinine 0.83 mg/dL (0.59-1.40) 0.80 mg/dL (0.59-1.40) 0.75 mg/dL (0.59-1.40) Estimated GFR () 78.7 (>/=60) 82.1 (>/=60) 88.4 (>/=60) Est GFR (CKD-EPI)(Non-Afr [place]ian) 65.0 (>/=60) 67.8 (>/=60) 73.1 (>/=60) BUN/Creatinine Ratio 33.0 36.0 29.0 Glucose Level 109 mg/dL (70-110) 117 mg/dL (70-110) 97 mg/dL (70-110) Calcium Level 8.3 mg/dL (8.4-10.5) 8.7 mg/dL (8.4-10.5) 8.5 mg/dL (8.4-10.5) Phosphorus Level 4.5 mg/dL (2.5-4.9) Magnesium Level 1.9 mg/dL (1.8-2.4) Total Bilirubin 1.8 mg/dL (0.2-1.0) 1.4 mg/dL (0.2-1.0) 1.8 mg/dL (0.2-1.0) Aspartate Amino Transf (AST/SGOT) 22 U/L (0-35) 19 U/L (0-35) 18 U/L (0-35) Alanine Aminotransferase (ALT/SGPT) 20 U/L (12-78) 19 U/L (12-78) 14 U/L (12-78) Alkaline Phosphatase 80 U/L (50-136) 106 U/L (50-136) 84 U/L (50-136) Pro-B-Type Natriuretic Peptide 4387 pg/mL (0-450) Total Protein 5.2 g/dL (6.4-8.2) 5.6 g/dL (6.4-8.2) 5.0 g/dL (6.4-8.2) Albumin 2.8 g/dL (3.4-5.0) 3.0 g/dL (3.4-5.0) 2.8 g/dL (3.4-5.0) Globulin 2.4 2.6 2.2 Albumin/Globulin Ratio 1.166 1.153 1.272 Thyroid Stimulating Hormone (TSH) 0.640 mIU/mL (0.358-3.740) PHYSICAL EXAMINATION GENERAL: Stable, on comfort flow HEENT: PERRLA NECK; supple CHEST: Diminished air entry bilaterrally HEART: RRR ABDOMEN: soft, non-tender, BS++ EXTREMITIES: no edema [employer] ME[employer]ER: alert and oriented. no focal motor deficit ASSESSMENT AND PLANS Acute Hypoxic respiratory failure; Wean off comfort flow. Maintain on nasal canula COVID 19 pneumonia; Continue empiric treatment with remdesivir, zinc and vit C and breathing treatment AFIB + RVR; stable on metoprolol and amiodarone CHF exacerbation; continue lasix 40mg bid Hypokalemia; Increase oral KCL replacement therapy to bid Further care per clinical course. Code Status; DNR MILLI MACKAY MD Jul 18, 2020 21:00
[2020-07-18] MEDS: KLOR-CON 10 PO SCH (21:52)
[2020-07-19 00:49] VITALS: BP 149/78
[2020-07-19] MEDS: COMBIVENT RESPIMAT 20-100 MCG IH PRN ×2 (03:15→10:00)
[2020-07-19 04:38] VITALS: BP 143/89
[2020-07-19 08:00] VITALS: BP 161/90
[2020-07-19] MEDS: PEPCID IV SCH (08:14)
[2020-07-19] MEDS: ATIVAN PO SCH (08:15)
[2020-07-19] MEDS: ZINC SULFATE PO SCH (08:15)
[2020-07-19] MEDS: ASPIRIN PO SCH (08:15)
[2020-07-19] MEDS: KLOR-CON 10 PO SCH (08:16)
[2020-07-19] MEDS: LASIX IV SCH (08:17)
[2020-07-19] MEDS: DEXAMETHASONE 10 MG/ML VIAL IV SCH (08:17)
[2020-07-19] MEDS: MUCINEX PO SCH (08:17)
[2020-07-19] MEDS: REMDESIVIR (EUA) 100 MG in NS 250ML 250 ML IV SCH (08:17)
[2020-07-19] MEDS: VITAMIN C PO SCH (08:17)
[2020-07-19 09:54] VITALS: BP 143/89
[2020-07-19 12:10] VITALS: BP 148/79
[2020-07-19 12:33] LABS: CARBON DIOXIDE 42.1 mmol/L (20.0-32)
[2020-07-19 12:34] LABS: CALCIUM 8.5 mg/dL (8.4-10.5)
[2020-07-19] MEDS ORDERED: ASCO500T5 PO (13:14)
[2020-07-19] MEDS ORDERED: IPRA4AER IH (13:14)
[2020-07-19] MEDS ORDERED: ZINC220C7 PO (13:14)
[2020-07-19] MEDS ORDERED: FURO20TA3 PO (13:14)
[2020-07-19] MEDS ORDERED: AMIO200T6 PO (13:16)
--- NOTE | 2020-07-19 13:25 | PRM.DC ---
Discharge Summary Date of Discharge: Jul 19, 2020 Time of Request to Discharge: 13:18 Hospital Course Patient is an 89yo lady admitted with hx of Covid 19 pneumonia. She also has hx of COPD, HTN, CHF and afib. She is also on 2-3L of oxygen at home. Patient was admitted and started on on oxygen as well as remdesivir, breathing treatment, zinc and Vit C. She was continued on amiodarone and lasix. Patient was serially monitored while in the hospital. She has been weaned from comfort flow to o2 by nasal canula. She is maintaining her O2 saturation on 2L of nasal canula. Patient is also also eating and moving about in her room. She will be discharged home on the reconciled medications. Patient will continue to f/u with her pcp and truck striker. Additional Comments None Patient History: Unknown General: Alert, Cooperative, No acute distress HEENT: Atraumatic, PERRLA, Mucous membr. moist/pink Neck: Supple, No JVD, No thyromegaly Lungs: Other (Decreased AE bilaterrally) Heart: Normal S2, No murmurs Abdomen: Normal bowel sounds, Soft, No tenderness Extremities: No clubbing, No cyanosis, No edema Skin: No rashes, No breakdown, No significant lesion Neuro: Normal gait, Normal speech, Strength at 5/5 X4 ext Psych/Mental Status: Mental status NL Results(Labs/Rad) Laboratory Tests Test 07/14/20 14:45 07/14/20 15:55 07/14/20 23:00 07/15/20 04:43 White Blood Count 5.2 10^3/uL (4.5-11.0) 4.6 10^3/uL (4.5-11.0) Red Blood Count 4.33 10^6/uL (4.00-5.20) 4.05 10^6/uL (4.00-5.20) Hemoglobin 12.3 g/dL (12.0-15.0) 11.7 g/dL (12.0-15.0) Hematocrit 41.8 % (36.0-46.0) 38.9 % (36.0-46.0) Mean Corpuscular Volume 96.5 fL (78-100) 96.0 fL (78-100) Mean Corpuscular Hemoglobin 28.4 pg (26-34) 28.9 pg (26-34) Mean Corpuscular Hemoglobin Concent 29.4 g/dL (33-36.5) 30.1 g/dL (33-36.5) Red Cell Distribution Width 17.5 % (11.5-14.5) 17.6 % (11.5-14.5) Platelet Count 126 10^3/uL (150-400) 125 10^3/uL (150-400) Mean Platelet Volume 11.7 fL (7.8-11.0) 11.9 fL (7.8-11.0) Neutrophils (%) (Auto) 77.2 % (41.0-85.0) 70.8 % (41.0-85.0) Lymphocytes (%) (Auto) 14.1 % (24.0-44.0) 18.6 % (24.0-44.0) Monocytes (%) (Auto) 8.3 % (5.0-12.0) 10.2 % (5.0-12.0) Neutrophils # (Auto) 4.0 10^3/uL (1.8-7.7) 3.3 10^3/uL (1.8-7.7) Lymphocytes # (Auto) 0.73 10^3/uL1 (1.0-4.8) 0.86 10^3/uL1 (1.0-4.8) Monocytes # (Auto) 0.4 10^3/uL (0.3-0.8) 0.5 10^3/uL (0.3-0.8) Absolute Immature Granulocyte (auto 0.01 10^3 u/L (0-2) 0.01 10^3 u/L (0-2) Absolute Eosinophils (auto) 0.0 10^3/uL (0.0-0.2) 0.0 10^3/uL (0.0-0.2) Immature Granulocytes % 0.20 % (0.00-0.50) 0.20 % (0.00-0.50) Eosinophils % 0.0 % (0.0-5.0) 0.0 % (0.0-5.0) Basophils % 0.2 % (0.0-0.2) 0.2 % (0.0-0.2) Basophils # 0.0 10^3/uL (0.0-0.1) 0.0 10^3/uL (0.0-0.1) Prothrombin Time 11.3 SEC (9.3-11.3) Prothrombin Time INR (Non-Therap) 1.1 Activated Partial Thromboplast Time 26.3 SEC (24.67-30.72) D-Dimer 0.77 mg/L (0.19-0.49) Sodium Level 145 mmol/L (132-145) 145 mmol/L (132-145) Potassium Level 4.3 mmol/L (3.6-5.2) 3.9 mmol/L (3.6-5.2) Chloride Level 108.0 mmol/L (96-109) 107.0 mmol/L (96-109) Carbon Dioxide Level 35.8 mmol/L (20.0-32) 36.0 mmol/L (20.0-32) Anion Gap 5.5 5.9 Blood Urea Nitrogen 23 mg/dL (7-18) 25 mg/dL (7-18) Creatinine 0.80 mg/dL (0.59-1.40) 0.91 mg/dL (0.59-1.40) Estimated GFR () 82.1 (>/=60) 70.8 (>/=60) Est GFR (CKD-EPI)(Non-Afr Grenadian) 67.8 (>/=60) 58.5 (>/=60) BUN/Creatinine Ratio 28.0 27.0 Glucose Level 132 mg/dL (70-110) 113 mg/dL (70-110) Calcium Level 8.8 mg/dL (8.4-10.5) 8.6 mg/dL (8.4-10.5) Total Bilirubin 3.1 mg/dL (0.2-1.0) 1.8 mg/dL (0.2-1.0) Aspartate Amino Transf (AST/SGOT) 29 U/L (0-35) 25 U/L (0-35) Alanine Aminotransferase (ALT/SGPT) 22 U/L (12-78) 21 U/L (12-78) Alkaline Phosphatase 99 U/L (50-136) 86 U/L (50-136) Total Creatine Kinase 42 U/L (26-192) Creatine Kinase MB 3.6 ng/mL (0.5-3.6) Troponin I 0.13 ng/mL (0.00-0.05) 0.19 ng/mL (0.00-0.05) Pro-B-Type Natriuretic Peptide 9501 pg/mL (0-450) Total Protein 5.6 g/dL (6.4-8.2) 5.2 g/dL (6.4-8.2) Albumin 3.2 g/dL (3.4-5.0) 2.9 g/dL (3.4-5.0) Globulin 2.4 2.3 Albumin/Globulin Ratio 1.333 1.260 SARS-CoV-2 Antigen (Rapid) POSITIVE (NEGATIVE) Blood Gas Sample Site RT BRACIAL ARTERY Blood Gas pH 7.410 (7.350-7.450) Blood Gas PCO2 43.4 mmHg (35.0-45.0) Blood Gas PO2 90.3 mmHg (80.0-100.0) Blood Gas HCO3 26.9 mmol/L (22.0-26.0) Blood Gas Base Excess 1.9 mmol/L (-2.0-2.0) Dioni Test N/A Arterial Blood Oxygen Saturation 96.8 % (94.0-97.00) Deoxyhemoglobin 3.1 % (0.0-5.0) Carboxyhemoglobin 2.2 % (0.0-3.9) Methemoglobin 0.4 % (0.00-5.0) Total Hemoglobin 13.1 % (12.0-17.8) Total Oxygen Concentration 17.5 % (13.5-17.5) Blood Gas Temperature 37 Oxygen Delivery Method (LAB) CF FiO2 60 % (20-101) Total Carbon Dioxide 28.2 mmol/L (23-27) Hemoglobin A1c 5.6 % (0-5.7) Phosphorus Level 4.8 mg/dL (2.5-4.9) Magnesium Level 1.9 mg/dL (1.8-2.4) Ferritin 261 ng/mL (8-252) Lactate Dehydrogenase 466 U/L (81-234) C-Reactive Protein 1.48 mg/dL (0.00-5.00) Triglycerides Level 64 mg/dL (20-200) Cholesterol Level 117 mg/dL (120-240) LDL Cholesterol, Calculated 65.2 VLDL Cholesterol, Calculated 12.8 HDL Cholesterol 39 mg/dL (32-96) Cholesterol Ratio (LDL/HDL) 1.6 Cholesterol/HDL Ratio [id number] 25-Hydroxy Vitamin D Total 36.2 ng/mL (30.0-100.0) Test 07/15/20 20:33 07/16/20 06:33 07/17/20 04:47 07/18/20 09:10 Bedside Glucose 179 (70 - 110) White Blood Count 5.5 10^3/uL (4.5-11.0) 8.0 10^3/uL (4.5-11.0) 6.5 10^3/uL (4.5-11.0) Red Blood Count 3.94 10^6/uL (4.00-5.20) 4.15 10^6/uL (4.00-5.20) 4.33 10^6/uL (4.00-5.20) Hemoglobin 11.6 g/dL (12.0-15.0) 12.3 g/dL (12.0-15.0) 12.5 g/dL (12.0-15.0) Hematocrit 37.4 % (36.0-46.0) 39.3 % (36.0-46.0) 40.1 % (36.0-46.0) Mean Corpuscular Volume 94.9 fL (78-100) 94.7 fL (78-100) 92.6 fL (78-100) Mean Corpuscular Hemoglobin 29.4 pg (26-34) 29.6 pg (26-34) 28.9 pg (26-34) Mean Corpuscular Hemoglobin Concent 31.0 g/dL (33-36.5) 31.3 g/dL (33-36.5) 31.2 g/dL (33-36.5) Red Cell Distribution Width 17.3 % (11.5-14.5) 17.0 % (11.5-14.5) 17.0 % (11.5-14.5) Platelet Count 121 10^3/uL (150-400) 147 10^3/uL (150-400) 121 10^3/uL (150-400) Mean Platelet Volume 11.5 fL (7.8-11.0) 12.1 fL (7.8-11.0) 11.2 fL (7.8-11.0) Neutrophils (%) (Auto) 78.0 % (41.0-85.0) 84.6 % (41.0-85.0) 80.5 % (41.0-85.0) Lymphocytes (%) (Auto) 11.7 % (24.0-44.0) 7.0 % (24.0-44.0) 10.0 % (24.0-44.0) Monocytes (%) (Auto) 9.7 % (5.0-12.0) 7.8 % (5.0-12.0) 8.8 % (5.0-12.0) Neutrophils # (Auto) 4.3 10^3/uL (1.8-7.7) 6.8 10^3/uL (1.8-7.7) 5.2 10^3/uL (1.8-7.7) Lymphocytes # (Auto) 0.64 10^3/uL1 (1.0-4.8) 0.56 10^3/uL1 (1.0-4.8) 0.65 10^3/uL1 (1.0-4.8) Monocytes # (Auto) 0.5 10^3/uL (0.3-0.8) 0.6 10^3/uL (0.3-0.8) 0.6 10^3/uL (0.3-0.8) Absolute Immature Granulocyte (auto 0.01 10^3 u/L (0-2) 0.02 10^3 u/L (0-2) 0.03 10^3 u/L (0-2) Absolute Eosinophils (auto) 0.0 10^3/uL (0.0-0.2) 0.0 10^3/uL (0.0-0.2) 0.0 10^3/uL (0.0-0.2) Immature Granulocytes % 0.20 % (0.00-0.50) 0.30 % (0.00-0.50) 0.50 % (0.00-0.50) Eosinophils % 0.0 % (0.0-5.0) 0.0 % (0.0-5.0) 0.0 % (0.0-5.0) Basophils % 0.4 % (0.0-0.2) 0.3 % (0.0-0.2) 0.2 % (0.0-0.2) Basophils # 0.0 10^3/uL (0.0-0.1) 0.0 10^3/uL (0.0-0.1) 0.0 10^3/uL (0.0-0.1) Sodium Level 143 mmol/L (132-145) 142 mmol/L (132-145) 139 mmol/L (132-145) Potassium Level 3.4 mmol/L (3.6-5.2) 3.5 mmol/L (3.6-5.2) 3.4 mmol/L (3.6-5.2) Chloride Level 103.0 mmol/L (96-109) 101.0 mmol/L (96-109) 101.0 mmol/L (96-109) Carbon Dioxide Level 37.9 mmol/L (20.0-32) 40.2 mmol/L (20.0-32) 41.2 mmol/L (20.0-32) Anion Gap 5.5 4.3 0.2 Blood Urea Nitrogen 28 mg/dL (7-18) 29 mg/dL (7-18) 22 mg/dL (7-18) Creatinine 0.83 mg/dL (0.59-1.40) 0.80 mg/dL (0.59-1.40) 0.75 mg/dL (0.59-1.40) Estimated GFR () 78.7 (>/=60) 82.1 (>/=60) 88.4 (>/=60) Est GFR (CKD-EPI)(Non-Afr Grenadian) 65.0 (>/=60) 67.8 (>/=60) 73.1 (>/=60) BUN/Creatinine Ratio 33.0 36.0 29.0 Glucose Level 109 mg/dL (70-110) 117 mg/dL (70-110) 97 mg/dL (70-110) Calcium Level 8.3 mg/dL (8.4-10.5) 8.7 mg/dL (8.4-10.5) 8.5 mg/dL (8.4-10.5) Phosphorus Level 4.5 mg/dL (2.5-4.9) Magnesium Level 1.9 mg/dL (1.8-2.4) Total Bilirubin 1.8 mg/dL (0.2-1.0) 1.4 mg/dL (0.2-1.0) 1.8 mg/dL (0.2-1.0) Aspartate Amino Transf (AST/SGOT) 22 U/L (0-35) 19 U/L (0-35) 18 U/L (0-35) Alanine Aminotransferase (ALT/SGPT) 20 U/L (12-78) 19 U/L (12-78) 14 U/L (12-78) Alkaline Phosphatase 80 U/L (50-136) 106 U/L (50-136) 84 U/L (50-136) Pro-B-Type Natriuretic Peptide 4387 pg/mL (0-450) Total Protein 5.2 g/dL (6.4-8.2) 5.6 g/dL (6.4-8.2) 5.0 g/dL (6.4-8.2) Albumin 2.8 g/dL (3.4-5.0) 3.0 g/dL (3.4-5.0) 2.8 g/dL (3.4-5.0) Globulin 2.4 2.6 2.2 Albumin/Globulin Ratio 1.166 1.153 1.272 Thyroid Stimulating Hormone (TSH) 0.640 mIU/mL (0.358-3.740) Test 07/19/20 12:10 Sodium Level 137 mmol/L (132-145) Potassium Level 4.1 mmol/L (3.6-5.2) Chloride Level 98.0 mmol/L (96-109) Carbon Dioxide Level 42.1 mmol/L (20.0-32) Anion Gap 1.0 Blood Urea Nitrogen 27 mg/dL (7-18) Creatinine 0.85 mg/dL (0.59-1.40) Estimated GFR () 76.6 (>/=60) Est GFR (CKD-EPI)(Non-Afr [place]) 63.3 (>/=60) BUN/Creatinine Ratio 31.0 Glucose Level 124 mg/dL (70-110) Calcium Level 8.5 mg/dL (8.4-10.5) Total Bilirubin 1.7 mg/dL (0.2-1.0) Aspartate Amino Transf (AST/SGOT) 33 U/L (0-35) Alanine Aminotransferase (ALT/SGPT) 25 U/L (12-78) Alkaline Phosphatase 92 U/L (50-136) Total Protein 5.6 g/dL (6.4-8.2) Albumin 3.0 g/dL (3.4-5.0) Globulin 2.6 Albumin/Globulin Ratio 1.153 Scheduled Albuterol Sulfate (Albuterol Sulfate), 1 VIAL NEB BID, (Reported) Amiodarone Hcl (Cordarone), 200 MG PO DAILY24 Ascorbic Acid (Ascorbic Acid), 500 MG PO BID Aspirin (Aspirin), 2 TAB PO DAILY, (Reported) Fluticasone/Umeclidin/Vilanter (Trelegy Ellipta 100-62.5-25), 1 PUFF IH AM, (Reported) Furosemide (Furosemide), 20 MG PO EVERY OTHER DAY, (Reported) Furosemide (Furosemide), 20 MG PO DAILY24 Lorazepam (Ativan), 1 MG PO BID, (Reported) Lorazepam (Ativan), 0.5 MG PO AT NOON PRN, (Reported) Metoprolol Succinate (Metoprolol Succinate), 50 MG PO DAILY24, (Reported) Potassium Citrate (Potassium Citrate ER), 20 MEQ PO BID, (Reported) Trazodone Hcl (Trazodone Hcl), 50 MG PO HS, (Reported) Verapamil Hcl (Verelan Pm), 200 MG PO DAILY Vortioxetine Hydrobromide (Trintellix), 20 MG PO DAILY24 Zinc Sulfate (Zinc Sulfate), 220 MG PO DAILY Scheduled PRN Ipratropium/Albuterol Sulfate (Combivent Respimat Inhal [place]), 1 INH IH Q2H PRN for SHORTNESS OF BREATH Sepsis Evaluation @ Discharge 07/19/20 09:50 Course Sepsis Screening Results: Posi: POSITIVE Sepsis Qualifier/Stage: SEPSIS RISK Duration or Total Time Spent w: 21M Vitals & review Data Vital Sign - Last 24 Hours 07/18/20 07/18/20 07/18/20 07/18/20 16:15 16:27 16:28 19:28 Temp 97.5 97.5 Pulse 82 80 82 Resp 20 20 18 20 B/P (MAP) 152/86 (108) 174/84 (114) Pulse Ox 95 95 94 95 O2 Delivery Nasal Canula Nasal Canula O2 Flow Rate 4.00 4.00 4.00 FiO2 40 07/18/20 07/18/20 07/18/20 07/18/20 19:38 19:43 19:57 20:33 Pulse 82 B/P (MAP) 174/84 174/84 O2 Delivery Nasal Cannula Nasal Cannula O2 Flow Rate 5.00 07/19/20 07/19/20 07/19/20 07/19/20 00:49 03:14 04:38 08:00 Temp 97.7 97.9 97.9 Pulse 82 82 84 Resp 18 18 18 18 B/P (MAP) 149/78 (101) 143/89 (107) 161/90 (113) Pulse Ox 92 92 94 94 07/19/20 07/19/20 07/19/20 07/19/20 08:17 09:54 10:10 10:10 Temp 97.9 Pulse 82 70 Resp 18 18 B/P (MAP) 143/89 143/89 (107) Pulse Ox 94 96 O2 Delivery Nasal Cannula Nasal Cannula O2 Flow Rate 2.00 2.00 FiO2 28 07/19/20 07/19/20 10:10 12:10 Temp 98.0 Pulse 70 89 Resp 18 18 B/P (MAP) 148/79 (102) Pulse Ox 96 94 Intake and Output 07/19/20 07:00 Intake Total 205 ml Output Total 2800 ml Balance -2595 ml Laboratory Tests Test 07/18/20 09:10 07/19/20 12:10 White Blood Count 6.5 10^3/uL Red Blood Count 4.33 10^6/uL Hemoglobin 12.5 g/dL Hematocrit 40.1 % Mean Corpuscular Volume 92.6 fL Mean Corpuscular Hemoglobin 28.9 pg Mean Corpuscular Hemoglobin Concent 31.2 g/dL Red Cell Distribution Width 17.0 % Platelet Count 121 10^3/uL Mean Platelet Volume 11.2 fL Neutrophils (%) (Auto) 80.5 % Lymphocytes (%) (Auto) 10.0 % Monocytes (%) (Auto) 8.8 % Neutrophils # (Auto) 5.2 10^3/uL Lymphocytes # (Auto) 0.65 10^3/uL1 Monocytes # (Auto) 0.6 10^3/uL Absolute Immature Granulocyte (auto 0.03 10^3 u/L Absolute Eosinophils (auto) 0.0 10^3/uL Immature Granulocytes % 0.50 % Eosinophils % 0.0 % Basophils % 0.2 % Basophils # 0.0 10^3/uL Sodium Level 139 mmol/L 137 mmol/L Potassium Level 3.4 mmol/L 4.1 mmol/L Chloride Level 101.0 mmol/L 98.0 mmol/L Carbon Dioxide Level 41.2 mmol/L 42.1 mmol/L Anion Gap 0.2 1.0 Blood Urea Nitrogen 22 mg/dL 27 mg/dL Creatinine 0.75 mg/dL 0.85 mg/dL Estimated GFR () 88.4 76.6 Est GFR (CKD-EPI)(Non-Afr Grenadian) 73.1 63.3 BUN/Creatinine Ratio 29.0 31.0 Glucose Level 97 mg/dL 124 mg/dL Calcium Level 8.5 mg/dL 8.5 mg/dL Total Bilirubin 1.8 mg/dL 1.7 mg/dL Aspartate Amino Transf (AST/SGOT) 18 U/L 33 U/L Alanine Aminotransferase (ALT/SGPT) 14 U/L 25 U/L Alkaline Phosphatase 84 U/L 92 U/L Total Protein 5.0 g/dL 5.6 g/dL Albumin 2.8 g/dL 3.0 g/dL Globulin 2.2 2.6 Albumin/Globulin Ratio 1.272 1.153 Current Medications Medications (Trade) Dose Ordered Sig/Jose PRN Reason Start Time Stop Time Status Last Admin Guaifenesin (Mucinex) 600 mg BID 07/17/20 21:00 08/16/20 20:59 07/19/20 08:17 Potassium Chloride (Klor-Con 10) 20 meq BID 07/18/20 21:00 08/17/20 08:59 07/19/20 08:16 LEVEL 1 SEPSIS INFECTION CRITE: Cough/Shortness of Breath LEVEL 2-SIRS (LIST ALL THAT AP: None/Not assessed Cardiovascular Evidence: Not Assessed or None Hematologic Evidence: None/Not assessed Hepatic Evidence: None/Not assessed Metabolic Evidence: None/Not assessed Neurological Evidence: None/Not assessed Respiratory Evidence: Need for O2 to keep>90% Renal Evidence: None/Not assessed O2 Sat by Pulse Oximetry: 94 Oxygen Flow Rate: 2.00 Plan Discharge Disposition: Stable Plan continue o2 at home as needed continue regular breathing treatment at home quarantine for 14days f/u with pcp f/u with her truck striker MILLI MACKAY MD Jul 19, 2020 13:25
--- NOTE | 2020-07-19 15:25 | NUR ---
DISCHARGE PATIENT IV REMOVED TIP INTACT WITH PRESSURE WRAP APPLIED. PAREDES CATHETER REMOVED. NO SIGNS OF DISTRESS. REPORT CALLED TO KARYN AT [facility]. INSTRUCTED PATIENT NEEDS TO BE ISOLATED FOR 10 DAYS AFTER TEST ON [id number], ARJUN'S PAREDES WAS REMOVED @ 1515 AND IS DUE TO VOID BY 2315. REPORTED PATIENT IS ON 2 L NC AND WILL ARRIVE WITH PAPERWORK WITH DISCHARGE INSTRUCTIONS AND NEW, STOPPED AND CONTINUED MEDS. KARYN STATED SHE WOULD CALL AND GET THE NEW MEDICATIONS FOR THE PATIENT. ESCORTED PATIENT TO ER DOOR VIA WHEELCHAIR AND ASSISTED INTO VEHICLE WITH FAMILY MEMBER.
[2020-07-19 16:41] VITALS: BP 148/79
== END 2020-07-19 15:30 | disposition home or self-care (01) | DRG 177 ==
LOC: EDBD 13:13 → ER 13:13 → MS 18:29
PROVIDERS: ADMIT Family Medicine; ATTEND Family Medicine
PROC: XW033E5 Introduction of Remdesivir Anti-infective into Peripheral Vein, Percutaneous Approach, New Technology Group 5 (ICD-10-PCS; principal; 2020-07-17)
DX: U07.1 COVID-19 (principal); J12.89 Other viral pneumonia; J96.01 Acute respiratory failure with hypoxia; I48.20 Chronic atrial fibrillation, unspecified; J44.0 Chronic obstructive pulmonary disease with (acute) lower respiratory infection; Z66 Do not resuscitate; E87.6 Hypokalemia; I50.9 Heart failure, unspecified; Z86.19 Personal history of other infectious and parasitic diseases; Z90.710 Acquired absence of both cervix and uterus; Z79.82 Long term (current) use of aspirin; Z79.51 Long term (current) use of inhaled steroids; Z79.899 Other long term (current) drug therapy; Z90.49 Acquired absence of other specified parts of digestive tract; I11.0 Hypertensive heart disease with heart failure; Z99.81 Dependence on supplemental oxygen
CPT/HCPCS: 36415; 36600; 71045; 78580; 80053; 80061; 82306; 82550; 82553; 82728; 82803; 82948; 83036; 83615; 83735; 83880; 84100; 84443; 84484; 85025; 85379; 85610; 85730; 86140; 87040; 87426; 93005; 93306; 93970; 99285; A9540; G0378; J0282; J1100; J1650; J1940; J3490; J7040; J7050; J7060

== ENCOUNTER → 2020-08-10 | Outpatient (CLI) | payer MEDICARE, OTHER ==
[~2020-08-10] MED LIST changes: +AMIO200T6 PO; +ASCO500T5 PO; +IPRA4AER IH; +ZINC220C7 PO
[2020-08-10 14:59] LABS: BASOPHIL % 0.6 % (0.0-0.2); LYMPHOCYTES # 0.56 10^3/uL1 (1.0-4.8); LYMPHOCYTES % 18.2 % (24.0-44.0); MEAN CORP HGB 28.6 pg (26-34); MONOCYTES # 0.3 10^3/uL (0.3-0.8); MONOCYTES % 8.1 % (5.0-12.0); NEUTROPHIL # 2.3 10^3/uL (1.8-7.7); NEUTROPHILS % 73.1 % (41.0-85.0); RED CELL DISTRIBUTION WIDTH 15.7 % (11.5-14.5)
[2020-08-10 23:13] LABS: CALCIUM 9.7 mg/dL (8.4-10.5); CARBON DIOXIDE 38.6 mmol/L (20.0-32)
== END | disposition home or self-care (01) ==
LOC: NPLAB 14:28
PROVIDERS: ATTEND Nurse Practitioner Family
DX: I11.0 Hypertensive heart disease with heart failure (principal); I50.31 Acute diastolic (congestive) heart failure
CPT/HCPCS: 36415; 80048; 83880; 84443; 85025

== ENCOUNTER → 2020-08-18 | Outpatient (CLI) | payer MEDICARE, OTHER ==
[2020-08-18 12:34] LABS: CARBON DIOXIDE 41.9 mmol/L (20.0-32)
== END | disposition home or self-care (01) ==
LOC: NPLAB 11:39
PROVIDERS: ATTEND Nurse Practitioner Family
DX: J43.9 Emphysema, unspecified (principal); J96.21 Acute and chronic respiratory failure with hypoxia; I11.0 Hypertensive heart disease with heart failure
CPT/HCPCS: 36415; 80048; 83880

== ENCOUNTER → 2020-08-20 | Outpatient (CLI) | payer MEDICARE, OTHER ==
[2020-08-20 12:46] LABS: BASOPHIL % 0.5 % (0.0-0.2); LYMPHOCYTES # 0.48 10^3/uL1 (1.0-4.8); LYMPHOCYTES % 8.4 % (24.0-44.0); MEAN CORP HGB 28.5 pg (26-34); MONOCYTES # 0.3 10^3/uL (0.3-0.8); MONOCYTES % 5.8 % (5.0-12.0); NEUTROPHIL # 4.9 10^3/uL (1.8-7.7); NEUTROPHILS % 85.1 % (41.0-85.0); PLATELET COUNT 53 10^3/uL (150-400)
[2020-08-20 14:30] LABS: DIFFERENTIAL COMMENT NORMAL; LYMPHOCYTE 10 % (25-36); MONOCYTE 2 % (3-9); SEGMENTED NEUTROPHILS 88 % (31-76)
== END | disposition home or self-care (01) ==
LOC: NPLAB 11:54
PROVIDERS: ATTEND Nurse Practitioner Family
DX: J96.21 Acute and chronic respiratory failure with hypoxia (principal); J12.89 Other viral pneumonia
CPT/HCPCS: 36415; 85025